=== PATIENT | male | born 1945 | race Caucasian/White ===

== ENCOUNTER 2022-01-24 14:20 | Inpatient (IN) ==
[2022-01-24] MEDS ORDERED: SODIUM CHLORIDE 0.9% 500 ML IV STA (14:54)
[2022-01-24 15:05] LABS: Basophils % 0.3 % (0.0-0.8); Eosinophils # 0.1 10*3/uL (0.0-0.87); Immature Granulocytes % 2.7 %; Immature Granulocytes Absolute 0.28 #; Lymphocytes # 1.2 10*3/uL (1.4-4.0); Lymphocytes % 11.3 % (21.2-54.2); Mean Corpuscular HGB Conc 30.3 GM/DL (32-36); Mean Corpuscular Volume 87.5 FL (87-102); Mean Platelet Volume 10.7 FL (9.6-12.0); Monocytes # 0.7 10*3/uL (0.11-0.8); Monocytes % 6.4 % (1.7-12.7); NRBC # 0.05 10*3/uL; Neutrophils % 78.3 % (38.7-73.9); Platelet Count 203 T/CUMM (130-400); Red Blood Count 3.77 MC/CUMM (3.8-5.5); Red Cell Distribution Width 20.4 % (9.3-17.3); White Blood Count 10.5 T/CUMM (4-12)
[2022-01-24 15:18] LABS: INR 1.3; PT Patient Result 14.4 SECS (10.1-12.1); Partial Thromboplastin Time 24.7 SECS (23.7-32.9)
[2022-01-24 15:22] LABS: Albumin 2.1 G/DL (3.4-5.0); Bilirubin,Total 1.9 MG/DL (0.20-1.00); Calcium 6.5 MG/DL (8.5-10.1); Osmolality,Calculated 292.7 MOS/KG (273-304); Potassium 3.6 MMOL/L (3.5-5.1); Total Protein 5.3 G/DL (6.4-8.2)
[2022-01-24] MEDS ORDERED: ONDANSETRON 4 MG/2 ML VIAL IV PRN (15:51)
[2022-01-24] MEDS ORDERED: ACETAMINOPHEN 325 MG TABLET PO PRN (15:51)
[2022-01-24] MEDS ORDERED: ZALEPLON 5 MG CAPSULE PO PRN (15:51)
[2022-01-24] MEDS ORDERED: MAGNESIUM SULF RIDER 2 GM/50 ML PREMIX IV PRN (15:51)
[2022-01-24] MEDS ORDERED: MAGNESIUM SULF RIDER 4 GM/100 ML PREMIX IV PRN (15:51)
[2022-01-24] MEDS ORDERED: FUROSEMIDE 40 MG/4 ML VIAL IV SCH (16:00)
[2022-01-24] MEDS ORDERED: POTASSIUM CHLORIDE 20 MEQ TABLET PO PRN (16:01)
[2022-01-24] MEDS: PROMETHAZINE 25 MG TABLET PO SCH (17:00)
[2022-01-24] MEDS: ENOXAPARIN 30 MG/0.3 ML SYRINGE SUBCUT SCH (18:36)
[2022-01-24] MEDS: AZITHROMYCIN INJ 500 MG in SODIUM CHLORIDE 0.9% 250 ML IV SCH (19:18)
[2022-01-24] MEDS: LEVALBUTEROL 1.25 MG/3 ML NEB RESP TX SCH ×2 (19:51→23:21)
[2022-01-24] MEDS: cefTRIAXone 1,000 MG in SODIUM CHLORIDE 0.9% 100 ML IV SCH (20:06)
[2022-01-24] MEDS: PANTOPRAZOLE 40 MG TABLET PO SCH (20:52)
[2022-01-24 22:14] LABS: CKMB % 1.02 %; High Sensitive Troponin I* 135.4 ng/L (0-78)
[2022-01-25] MEDS: PROMETHAZINE 25 MG TABLET PO SCH ×6 (00:27→19:27)
[2022-01-25 05:46] LABS: Basophils % 0.2 % (0.0-0.8); Eosinophils # 0.1 10*3/uL (0.0-0.87); Eosinophils % 1.2 % (0.00-10.9); Hematocrit 30.6 VOL% (42.0-52.0); Hemoglobin 9.5 GM/DL (14.0-18.0); Immature Granulocytes Absolute 0.18 #; Lymphocytes # 1.1 10*3/uL (1.4-4.0); Lymphocytes % 12.2 % (21.2-54.2); Mean Corpuscular Volume 86.9 FL (87-102); Mean Platelet Volume 10.5 FL (9.6-12.0); Monocytes # 0.7 10*3/uL (0.11-0.8); Monocytes % 7.3 % (1.7-12.7); NRBC # 0.04 10*3/uL; Neutrophils % 77.1 % (38.7-73.9); Platelet Count 184 T/CUMM (130-400); Red Blood Count 3.52 MC/CUMM (3.8-5.5); Red Cell Distribution Width 20.3 % (9.3-17.3); White Blood Count 8.9 T/CUMM (4-12)
[2022-01-25 06:12] LABS: Albumin 2.1 G/DL (3.4-5.0); Bilirubin,Total 1.3 MG/DL (0.20-1.00); Osmolality,Calculated 293.7 MOS/KG (273-304); Potassium 3.2 MMOL/L (3.5-5.1); Total Protein 5.5 G/DL (6.4-8.2)
[2022-01-25] MEDS: LEVALBUTEROL 1.25 MG/3 ML NEB RESP TX SCH ×3 (07:39→19:30)
[2022-01-25] MEDS ORDERED: FUROSEMIDE 40 MG/4 ML VIAL IV SCH (08:00)
[2022-01-25] MEDS: NEBIVOLOL 10 MG TABLET PO SCH (08:34)
[2022-01-25] MEDS: FERROUS SULFATE 325 MG TABLET PO SCH (08:35)
[2022-01-25] MEDS: PANTOPRAZOLE 40 MG TABLET PO SCH ×2 (08:35→21:37)
[2022-01-25] MEDS: methylPREDNISolone 4 MG TABLET PO SCH (08:35)
[2022-01-25] MEDS: FLUTICASONE/SALMETEROL 500-50 DISKUS 14 DOSE INH SCH ×2 (08:36→21:43)
[2022-01-25] MEDS: CHOLECALCIFEROL 1,000 UNIT TABLET PO SCH (08:45)
[2022-01-25] MEDS ORDERED: PANTOPRAZOLE 40 MG TABLET PO SCH (09:00)
[2022-01-25] MEDS ORDERED: CHOLECALCIFEROL 1,000 UNIT TABLET PO SCH (09:00)
[2022-01-25] MEDS ORDERED: BIMATOPROST 0.01% OPH SOLN 2.5 ML BOTTLE BOTH EYES SCH (09:00)
[2022-01-25] MEDS ORDERED: POTASSIUM CHLORIDE 20 MEQ TABLET PO ONE (09:28)
[2022-01-25 13:55] LABS: Hepatitis B Core IgM Quant < 0.05 Index; Hepatitis B Surface Ag Quant < 0.10 Index; Hepatitis B Surface Ag Result Non-Reactive (NonReactive); Hepatitis C Virus Ab Quant 0.03 Index; Hepatitis C Virus Ab Result Non-Reactive (NonReactive)
[2022-01-25] MEDS: cefTRIAXone 1,000 MG in SODIUM CHLORIDE 0.9% 100 ML IV SCH (17:40)
[2022-01-25] MEDS: ENOXAPARIN 30 MG/0.3 ML SYRINGE SUBCUT SCH (17:44)
[2022-01-25] MEDS: AZITHROMYCIN INJ 500 MG in SODIUM CHLORIDE 0.9% 250 ML IV SCH (17:48)
[2022-01-25] MEDS: BIMATOPROST 0.01% OPH SOLN 2.5 ML BOTTLE BOTH EYES SCH (21:41)
[2022-01-26] MEDS: LEVALBUTEROL 1.25 MG/3 ML NEB RESP TX SCH ×4 (01:58→19:40)
[2022-01-26] MEDS: PROMETHAZINE 25 MG TABLET PO SCH ×2 (04:46→11:03)
[2022-01-26 05:32] LABS: Basophils % 0.1 % (0.0-0.8); Eosinophils % 0.3 % (0.00-10.9); Hematocrit 31.6 VOL% (42.0-52.0); Hemoglobin 9.5 GM/DL (14.0-18.0); Immature Granulocytes % 2.7 %; Immature Granulocytes Absolute 0.23 #; Lymphocytes # 0.8 10*3/uL (1.4-4.0); Lymphocytes % 8.9 % (21.2-54.2); Mean Corpuscular HGB Conc 30.1 GM/DL (32-36); Mean Platelet Volume 10.1 FL (9.6-12.0); Monocytes # 0.5 10*3/uL (0.11-0.8); Monocytes % 6.2 % (1.7-12.7); NRBC # 0.05 10*3/uL; Neutrophils % 81.8 % (38.7-73.9); Platelet Count 184 T/CUMM (130-400); Red Blood Count 3.59 MC/CUMM (3.8-5.5); Red Cell Distribution Width 20.3 % (9.3-17.3); White Blood Count 8.7 T/CUMM (4-12)
[2022-01-26 06:05] LABS: Albumin 2.4 G/DL (3.4-5.0); Calcium 7.1 MG/DL (8.5-10.1); Osmolality,Calculated 292.8 MOS/KG (273-304); Potassium 3.6 MMOL/L (3.5-5.1); Total Protein 6.1 G/DL (6.4-8.2)
[2022-01-26] MEDS: CHOLECALCIFEROL 1,000 UNIT TABLET PO SCH (09:31)
[2022-01-26] MEDS: PANTOPRAZOLE 40 MG TABLET PO SCH ×2 (09:31→20:33)
[2022-01-26] MEDS: FERROUS SULFATE 325 MG TABLET PO SCH (09:31)
[2022-01-26] MEDS: methylPREDNISolone 4 MG TABLET PO SCH (09:32)
[2022-01-26] MEDS: FLUTICASONE/SALMETEROL 500-50 DISKUS 14 DOSE INH SCH ×2 (09:32→20:34)
[2022-01-26 09:36] LABS: Albumin (SPE) 3.2 G/DL (3.2-5.3); Albumin (SPE) Rel % 53.9 %; Alpha 1 (SPE) 0.4 G/DL (0.1-0.4); Alpha 1 (SPE) Rel % 6.9 %; Beta (SPE) 0.6 G/DL (0.5-1.1); Beta (SPE) Rel % 9.2 %
[2022-01-26 09:41] LABS: Gamma (SPE) 0.8 G/DL (0.7-1.7)
[2022-01-26] MEDS ORDERED: GLUCAGON 1 MG VIAL IM PRN (10:33)
[2022-01-26] MEDS ORDERED: DEXTROSE 10% 250 ML BAG IV PRN (10:33)
[2022-01-26] MEDS: INSULIN LISPRO 100 UNIT/ML SUBCUT SCH ×3 (13:10→20:33)
[2022-01-26] MEDS: cefTRIAXone 1,000 MG in SODIUM CHLORIDE 0.9% 100 ML IV SCH (16:04)
[2022-01-26] MEDS: AZITHROMYCIN INJ 500 MG in SODIUM CHLORIDE 0.9% 250 ML IV SCH (16:42)
[2022-01-26 17:13] LABS: Total Protein 24 Hr Ur Result 276 MG/24HR (0-149.1); Total Volume,Urine 1150 ML (400-2000)
[2022-01-26] MEDS: PROMETHAZINE 25 MG TABLET PO PRN (17:25)
[2022-01-26] MEDS: ENOXAPARIN 30 MG/0.3 ML SYRINGE SUBCUT SCH (17:26)
[2022-01-26 20:07] LABS: Protein/Creatinine Ratio,Urine 0.4 RATIO
[2022-01-26] MEDS: BIMATOPROST 0.01% OPH SOLN 2.5 ML BOTTLE BOTH EYES SCH (20:34)
[2022-01-27] MEDS: LEVALBUTEROL 1.25 MG/3 ML NEB RESP TX SCH ×4 (00:50→19:23)
[2022-01-27 05:02] LABS: Basophils % 0.2 % (0.0-0.8); Eosinophils % 0.2 % (0.00-10.9); Hematocrit 30.9 VOL% (42.0-52.0); Hemoglobin 9.5 GM/DL (14.0-18.0); Immature Granulocytes % 5.4 %; Lymphocytes # 0.9 10*3/uL (1.4-4.0); Lymphocytes % 10.1 % (21.2-54.2); Mean Corpuscular HGB Conc 30.7 GM/DL (32-36); Mean Corpuscular Volume 88.5 FL (87-102); Mean Platelet Volume 10.1 FL (9.6-12.0); Monocytes # 0.6 10*3/uL (0.11-0.8); Monocytes % 6.5 % (1.7-12.7); NRBC # 0.07 10*3/uL; Neutrophils % 77.6 % (38.7-73.9); Platelet Count 184 T/CUMM (130-400); Red Blood Count 3.49 MC/CUMM (3.8-5.5); Red Cell Distribution Width 20.5 % (9.3-17.3); White Blood Count 9.2 T/CUMM (4-12)
[2022-01-27] MEDS: PROMETHAZINE 25 MG TABLET PO PRN (05:04)
[2022-01-27 05:19] LABS: Calcium 7.2 MG/DL (8.5-10.1); Osmolality,Calculated 293.7 MOS/KG (273-304); Potassium 4.1 MMOL/L (3.5-5.1)
[2022-01-27 05:29] LABS: Lymphocytes 12 % (20-55); Microcytosis 1+; Polychromasia Slight; Total Cells Counted 100
[2022-01-27 05:30] LABS: Acanthocytes Few; Ovalocytes Few; Platelet Estimate Adequate
[2022-01-27 07:40] LABS: 24 Hr Protein (Bench) 276 MG/24HR (0-149.1)
[2022-01-27] MEDS ORDERED: MAGNESIUM SULF RIDER 2 GM/50 ML PREMIX IV ONE (08:08)
[2022-01-27] MEDS: INSULIN LISPRO 100 UNIT/ML SUBCUT SCH ×4 (10:00→22:11)
[2022-01-27] MEDS: MONTELUKAST 10 MG TABLET PO SCH (10:04)
[2022-01-27] MEDS: methylPREDNISolone 4 MG TABLET PO SCH (10:04)
[2022-01-27] MEDS: FLUTICASONE/SALMETEROL 500-50 DISKUS 14 DOSE INH SCH ×2 (10:05→22:12)
[2022-01-27] MEDS: FERROUS SULFATE 325 MG TABLET PO SCH (10:05)
[2022-01-27] MEDS: PANTOPRAZOLE 40 MG TABLET PO SCH ×2 (10:05→22:10)
[2022-01-27] MEDS: CHOLECALCIFEROL 1,000 UNIT TABLET PO SCH (10:05)
[2022-01-27] MEDS: cefTRIAXone 1,000 MG in SODIUM CHLORIDE 0.9% 100 ML IV SCH (17:17)
[2022-01-27] MEDS: ENOXAPARIN 30 MG/0.3 ML SYRINGE SUBCUT SCH (17:18)
[2022-01-27] MEDS: SODIUM CHLORIDE 0.9% 1,000 ML IV SCH (17:21)
[2022-01-27] MEDS: AZITHROMYCIN INJ 500 MG in SODIUM CHLORIDE 0.9% 250 ML IV SCH (18:48)
[2022-01-27] MEDS: BIMATOPROST 0.01% OPH SOLN 2.5 ML BOTTLE BOTH EYES SCH (21:37)
[2022-01-28] MEDS: LEVALBUTEROL 1.25 MG/3 ML NEB RESP TX SCH ×4 (00:37→19:10)
[2022-01-28 04:57] LABS: Basophils % 0.2 % (0.0-0.8); Eosinophils % 0.3 % (0.00-10.9); Hematocrit 32.8 VOL% (42.0-52.0); Immature Granulocytes % 6.3 %; Immature Granulocytes Absolute 0.57 #; Lymphocytes # 1.1 10*3/uL (1.4-4.0); Lymphocytes % 11.6 % (21.2-54.2); Mean Corpuscular HGB Conc 30.5 GM/DL (32-36); Mean Corpuscular Volume 88.4 FL (87-102); Monocytes # 0.6 10*3/uL (0.11-0.8); NRBC # 0.14 10*3/uL; Neutrophils % 74.6 % (38.7-73.9); Platelet Count 192 T/CUMM (130-400); Red Blood Count 3.71 MC/CUMM (3.8-5.5); Red Cell Distribution Width 21.1 % (9.3-17.3)
[2022-01-28 05:23] LABS: Anisocytosis 2+; Band Neutrophils 1 % (0-10); Lymphocytes 12 % (20-55); Nucleated Red Blood Cells 3 /100 WBC (0-5); Ovalocytes Few; Platelet Estimate Normal; Poikilocytosis 1+; Total Cells Counted 100
[2022-01-28 05:24] LABS: Burr Cells 1+
[2022-01-28 05:27] LABS: Calcium 7.7 MG/DL (8.5-10.1); Osmolality,Calculated 296.4 MOS/KG (273-304); Potassium 4.5 MMOL/L (3.5-5.1)
[2022-01-28] MEDS: INSULIN LISPRO 100 UNIT/ML SUBCUT SCH ×4 (10:09→22:12)
[2022-01-28] MEDS: methylPREDNISolone 4 MG TABLET PO SCH (10:17)
[2022-01-28] MEDS: CHOLECALCIFEROL 1,000 UNIT TABLET PO SCH (10:18)
[2022-01-28] MEDS: FERROUS SULFATE 325 MG TABLET PO SCH (10:18)
[2022-01-28] MEDS: MONTELUKAST 10 MG TABLET PO SCH (10:18)
[2022-01-28] MEDS: FLUTICASONE/SALMETEROL 500-50 DISKUS 14 DOSE INH SCH ×2 (10:18→21:55)
[2022-01-28] MEDS: PANTOPRAZOLE 40 MG TABLET PO SCH ×2 (10:18→21:55)
[2022-01-28] MEDS: SODIUM CHLORIDE 0.9% 1,000 ML IV SCH ×2 (13:42→19:19)
[2022-01-28] MEDS: cefTRIAXone 1,000 MG in SODIUM CHLORIDE 0.9% 100 ML IV SCH (17:32)
[2022-01-28] MEDS: ENOXAPARIN 30 MG/0.3 ML SYRINGE SUBCUT SCH (17:33)
[2022-01-28] MEDS: AZITHROMYCIN INJ 500 MG in SODIUM CHLORIDE 0.9% 250 ML IV SCH (18:38)
[2022-01-28] MEDS: BIMATOPROST 0.01% OPH SOLN 2.5 ML BOTTLE BOTH EYES SCH (22:12)
[2022-01-29] MEDS: LEVALBUTEROL 1.25 MG/3 ML NEB RESP TX SCH ×4 (00:06→19:30)
[2022-01-29 06:08] LABS: Basophils % 0.1 % (0.0-0.8); Eosinophils % 0.4 % (0.00-10.9); Hematocrit 34.5 VOL% (42.0-52.0); Hemoglobin 10.2 GM/DL (14.0-18.0); Immature Granulocytes % 5.6 %; Immature Granulocytes Absolute 0.55 #; Lymphocytes % 10.3 % (21.2-54.2); Mean Corpuscular HGB Conc 29.6 GM/DL (32-36); Mean Corpuscular Volume 90.1 FL (87-102); Mean Platelet Volume 10.3 FL (9.6-12.0); Monocytes # 0.6 10*3/uL (0.11-0.8); Monocytes % 6.4 % (1.7-12.7); NRBC # 0.22 10*3/uL; Neutrophils % 77.2 % (38.7-73.9); Platelet Count 215 T/CUMM (130-400); Red Blood Count 3.83 MC/CUMM (3.8-5.5); Red Cell Distribution Width 21.2 % (9.3-17.3); White Blood Count 9.9 T/CUMM (4-12)
[2022-01-29 06:35] LABS: Calcium 8.1 MG/DL (8.5-10.1); Osmolality,Calculated 290.5 MOS/KG (273-304); Potassium 4.7 MMOL/L (3.5-5.1)
[2022-01-29 06:57] LABS: Anisocytosis 1+; Band Neutrophils 6 % (0-10); Burr Cells 1+; Lymphocytes 11 % (20-55); Metamyelocytes 4 %; Nucleated Red Blood Cells 3 /100 WBC (0-5); Ovalocytes Few; Platelet Estimate Normal; Total Cells Counted 100
[2022-01-29] MEDS: INSULIN LISPRO 100 UNIT/ML SUBCUT SCH ×4 (08:05→21:13)
[2022-01-29] MEDS: PANTOPRAZOLE 40 MG TABLET PO SCH ×2 (08:09→21:12)
[2022-01-29] MEDS: MONTELUKAST 10 MG TABLET PO SCH (08:09)
[2022-01-29] MEDS: CHOLECALCIFEROL 1,000 UNIT TABLET PO SCH (08:09)
[2022-01-29] MEDS: ASPIRIN EC 81 MG TABLET PO SCH (08:09)
[2022-01-29] MEDS: NEBIVOLOL 10 MG TABLET PO SCH (08:09)
[2022-01-29] MEDS: methylPREDNISolone 4 MG TABLET PO SCH (08:09)
[2022-01-29] MEDS: SODIUM CHLORIDE 0.9% 1,000 ML IV SCH (08:10)
[2022-01-29] MEDS: FERROUS SULFATE 325 MG TABLET PO SCH (08:10)
[2022-01-29] MEDS: FLUTICASONE/SALMETEROL 500-50 DISKUS 14 DOSE INH SCH ×2 (08:11→21:12)
[2022-01-29] MEDS: cefTRIAXone 1,000 MG in SODIUM CHLORIDE 0.9% 100 ML IV SCH (16:26)
[2022-01-29] MEDS: ENOXAPARIN 30 MG/0.3 ML SYRINGE SUBCUT SCH (16:27)
[2022-01-29] MEDS: AZITHROMYCIN INJ 500 MG in SODIUM CHLORIDE 0.9% 250 ML IV SCH (18:01)
[2022-01-29] MEDS: BIMATOPROST 0.01% OPH SOLN 2.5 ML BOTTLE BOTH EYES SCH (21:22)
[2022-01-30] MEDS: LEVALBUTEROL 1.25 MG/3 ML NEB RESP TX SCH ×4 (00:25→18:48)
[2022-01-30 04:58] LABS: Basophils % 0.2 % (0.0-0.8); Eosinophils # 0.1 10*3/uL (0.0-0.87); Eosinophils % 0.7 % (0.00-10.9); Hematocrit 34.7 VOL% (42.0-52.0); Hemoglobin 10.3 GM/DL (14.0-18.0); Immature Granulocytes % 5.7 %; Immature Granulocytes Absolute 0.51 #; Lymphocytes # 1.2 10*3/uL (1.4-4.0); Lymphocytes % 13.1 % (21.2-54.2); Mean Corpuscular HGB Conc 29.7 GM/DL (32-36); Mean Corpuscular Volume 90.6 FL (87-102); Mean Platelet Volume 10.3 FL (9.6-12.0); Monocytes # 0.6 10*3/uL (0.11-0.8); Monocytes % 6.9 % (1.7-12.7); Neutrophils % 73.4 % (38.7-73.9); Platelet Count 215 T/CUMM (130-400); Red Blood Count 3.83 MC/CUMM (3.8-5.5); Red Cell Distribution Width 21.3 % (9.3-17.3)
[2022-01-30 05:31] LABS: Lymphocytes 15 % (20-55); Nucleated Red Blood Cells 2 /100 WBC (0-5); Total Cells Counted 100
[2022-01-30 05:32] LABS: Elliptocytes Few; Platelet Estimate Normal
[2022-01-30 05:34] LABS: Calcium 8.1 MG/DL (8.5-10.1); Osmolality,Calculated 294.3 MOS/KG (273-304)
[2022-01-30 05:38] LABS: Albumin 2.6 G/DL (3.4-5.0); Bilirubin,Direct 0.53 MG/DL (0.0-0.20); Bilirubin,Indirect 0.3 MG/DL (0.0-1.0); Bilirubin,Total 0.8 MG/DL (0.20-1.00); Total Protein 6.1 G/DL (6.4-8.2)
[2022-01-30] MEDS: SODIUM CHLORIDE 0.9% 1,000 ML IV SCH ×2 (06:17→15:46)
[2022-01-30] MEDS ORDERED: cefTRIAXone 1,000 MG in SODIUM CHLORIDE 0.9% 100 ML IV ONE (08:03)
[2022-01-30] MEDS: FLUTICASONE/SALMETEROL 500-50 DISKUS 14 DOSE INH SCH ×2 (08:52→21:25)
[2022-01-30] MEDS: CHOLECALCIFEROL 1,000 UNIT TABLET PO SCH (08:55)
[2022-01-30] MEDS: ASPIRIN EC 81 MG TABLET PO SCH (08:55)
[2022-01-30] MEDS: FERROUS SULFATE 325 MG TABLET PO SCH (08:55)
[2022-01-30] MEDS: MONTELUKAST 10 MG TABLET PO SCH (08:55)
[2022-01-30] MEDS: PANTOPRAZOLE 40 MG TABLET PO SCH ×2 (08:56→21:26)
[2022-01-30] MEDS: NEBIVOLOL 10 MG TABLET PO SCH (08:56)
[2022-01-30] MEDS: methylPREDNISolone 4 MG TABLET PO SCH (08:56)
[2022-01-30] MEDS: INSULIN LISPRO 100 UNIT/ML SUBCUT SCH ×4 (08:57→20:15)
[2022-01-30] MEDS: cefTRIAXone 1,000 MG in SODIUM CHLORIDE 0.9% 100 ML IV SCH (15:46)
[2022-01-30] MEDS: AZITHROMYCIN INJ 500 MG in SODIUM CHLORIDE 0.9% 250 ML IV SCH (17:03)
[2022-01-30] MEDS: ENOXAPARIN 30 MG/0.3 ML SYRINGE SUBCUT SCH (17:05)
[2022-01-30] MEDS: BIMATOPROST 0.01% OPH SOLN 2.5 ML BOTTLE BOTH EYES SCH (21:28)
[2022-01-31] MEDS: LEVALBUTEROL 1.25 MG/3 ML NEB RESP TX SCH ×4 (00:06→19:09)
[2022-01-31] MEDS: SODIUM CHLORIDE 0.9% 1,000 ML IV SCH ×2 (00:32→20:52)
[2022-01-31 04:36] LABS: Basophils % 0.3 % (0.0-0.8); Eosinophils % 0.4 % (0.00-10.9); Hematocrit 35.7 VOL% (42.0-52.0); Hemoglobin 10.6 GM/DL (14.0-18.0); Immature Granulocytes % 5.5 %; Immature Granulocytes Absolute 0.57 #; Lymphocytes # 1.4 10*3/uL (1.4-4.0); Lymphocytes % 13.2 % (21.2-54.2); Mean Corpuscular HGB Conc 29.7 GM/DL (32-36); Mean Corpuscular Volume 90.2 FL (87-102); Mean Platelet Volume 9.7 FL (9.6-12.0); Monocytes # 0.7 10*3/uL (0.11-0.8); Monocytes % 6.4 % (1.7-12.7); NRBC # 0.31 10*3/uL; Neutrophils % 74.2 % (38.7-73.9); Platelet Count 214 T/CUMM (130-400); Red Blood Count 3.96 MC/CUMM (3.8-5.5); Red Cell Distribution Width 21.4 % (9.3-17.3); White Blood Count 10.3 T/CUMM (4-12)
[2022-01-31 04:54] LABS: Calcium 7.9 MG/DL (8.5-10.1); Calcium 8.1 MG/DL (8.5-10.1); Osmolality,Calculated 286.8 MOS/KG (273-304); Osmolality,Calculated 294.3 MOS/KG (273-304); Potassium 5.4 MMOL/L (3.5-5.1)
[2022-01-31 05:23] LABS: Lymphocytes 14 % (20-55); Metamyelocytes 1 %; Nucleated Red Blood Cells 4 /100 WBC (0-5); Total Cells Counted 100
[2022-01-31 05:24] LABS: Microcytosis 1+; Ovalocytes Few
[2022-01-31 05:25] LABS: Acanthocytes Few; Platelet Estimate Normal; Polychromasia Slight; Target Cells Slight
[2022-01-31] MEDS ORDERED: cefTRIAXone 1,000 MG in SODIUM CHLORIDE 0.9% 100 ML IV ONE (06:00)
[2022-01-31] MEDS: INSULIN LISPRO 100 UNIT/ML SUBCUT SCH ×4 (08:01→20:57)
[2022-01-31] MEDS ORDERED: hydrALAZINE 25 MG TABLET PO SCH (09:48)
[2022-01-31] MEDS ORDERED: KETAMINE 500 MG/10 ML VIAL ONE (09:53)
[2022-01-31] MEDS ORDERED: ETOMIDATE 40 MG/20 ML VIAL IV ONE (09:53)
[2022-01-31] MEDS ORDERED: LIDOCAINE 2% 5 ML VIAL ONE (09:53)
[2022-01-31] MEDS ORDERED: fentaNYL 100 MCG/2 ML VIAL ONE (09:53)
[2022-01-31] MEDS ORDERED: SEVOFLURANE 1 UNIT/15 MINUTE INH ONE ×2 (09:53→11:27)
[2022-01-31] MEDS ORDERED: SUCCINYLCHOLINE 200 MG/10 ML VIAL ONE (09:53)
[2022-01-31] MEDS ORDERED: MIDAZOLAM 2 MG/2 ML VIAL ONE (09:56)
[2022-01-31] MEDS ORDERED: MIDAZOLAM 2 MG/2 ML VIAL IV ONE (10:07)
[2022-01-31] MEDS ORDERED: DEXAMETHASONE 4 MG/1 ML VIAL ONE (10:43)
[2022-01-31] MEDS ORDERED: SODIUM CHLORIDE 0.9% 1,000 ML IV ONE (10:43)
[2022-01-31] MEDS ORDERED: ONDANSETRON 4 MG/2 ML VIAL ONE (10:43)
[2022-01-31] MEDS ORDERED: NEOMYCIN/POLYMYXIN IRRIG SOLN 1 ML AMP BLADDERIRR ONE (10:46)
[2022-01-31] MEDS ORDERED: ePHEDrine 50 MG/ML VIAL ONE (10:48)
[2022-01-31] MEDS ORDERED: amLODIPine 5 MG TABLET PO SCH (11:00)
[2022-01-31] MEDS ORDERED: GLYCOPYRROLATE 0.4 MG/2 ML VIAL ONE (11:09)
[2022-01-31] MEDS ORDERED: NEOSTIGMINE 10 MG/10 ML VIAL ONE (11:09)
[2022-01-31 13:38] LABS: Osmolality,Calculated 290.4 MOS/KG (273-304); Potassium 5.2 MMOL/L (3.5-5.1)
[2022-01-31] MEDS: MONTELUKAST 10 MG TABLET PO SCH (14:39)
[2022-01-31] MEDS: NEBIVOLOL 10 MG TABLET PO SCH (14:39)
[2022-01-31] MEDS: methylPREDNISolone 4 MG TABLET PO SCH (14:39)
[2022-01-31] MEDS: FERROUS SULFATE 325 MG TABLET PO SCH (14:39)
[2022-01-31] MEDS: ASPIRIN EC 81 MG TABLET PO SCH (14:40)
[2022-01-31] MEDS: PANTOPRAZOLE 40 MG TABLET PO SCH ×2 (14:40→22:07)
[2022-01-31] MEDS: CHOLECALCIFEROL 1,000 UNIT TABLET PO SCH (14:40)
[2022-01-31] MEDS: FLUTICASONE/SALMETEROL 500-50 DISKUS 14 DOSE INH SCH ×2 (14:42→22:04)
[2022-01-31] MEDS: cefTRIAXone 1,000 MG in SODIUM CHLORIDE 0.9% 100 ML IV SCH (15:42)
[2022-01-31] MEDS: BIMATOPROST 0.01% OPH SOLN 2.5 ML BOTTLE BOTH EYES SCH (22:08)
[2022-02-01] MEDS: LEVALBUTEROL 1.25 MG/3 ML NEB RESP TX SCH ×4 (00:33→19:53)
[2022-02-01 05:16] LABS: Potassium 4.3 MMOL/L (3.5-5.1)
[2022-02-01 05:19] LABS: Basophils % 0.1 % (0.0-0.8); Eosinophils % 0.1 % (0.00-10.9); Hemoglobin 9.4 GM/DL (14.0-18.0); Immature Granulocytes % 5.7 %; Immature Granulocytes Absolute 0.53 #; Lymphocytes # 0.5 10*3/uL (1.4-4.0); Lymphocytes % 5.4 % (21.2-54.2); Mean Corpuscular HGB Conc 28.8 GM/DL (32-36); Mean Corpuscular Volume 92.4 FL (87-102); Monocytes # 0.5 10*3/uL (0.11-0.8); NRBC # 0.18 10*3/uL; Neutrophils % 83.7 % (38.7-73.9); Platelet Count 180 T/CUMM (130-400); Red Blood Count 3.53 MC/CUMM (3.8-5.5); Red Cell Distribution Width 21.3 % (9.3-17.3); White Blood Count 9.4 T/CUMM (4-12)
[2022-02-01 05:26] LABS: Hematocrit 32.6 VOL% (42.0-52.0)
[2022-02-01 05:33] LABS: Acanthocytes Few; Lymphocytes 3 % (20-55); Nucleated Red Blood Cells 2 /100 WBC (0-5); Polychromasia Slight; Total Cells Counted 100
[2022-02-01 05:34] LABS: Microcytosis 1+; Ovalocytes Slight; Target Cells Slight
[2022-02-01 05:35] LABS: Hypochromia Slight; Platelet Estimate Adequate
[2022-02-01] MEDS: INSULIN LISPRO 100 UNIT/ML SUBCUT SCH ×4 (08:41→22:03)
[2022-02-01] MEDS: PANTOPRAZOLE 40 MG TABLET PO SCH ×2 (08:46→22:02)
[2022-02-01] MEDS: FERROUS SULFATE 325 MG TABLET PO SCH (08:46)
[2022-02-01] MEDS: MONTELUKAST 10 MG TABLET PO SCH (08:46)
[2022-02-01] MEDS: methylPREDNISolone 4 MG TABLET PO SCH (08:46)
[2022-02-01] MEDS: NEBIVOLOL 10 MG TABLET PO SCH (08:47)
[2022-02-01] MEDS: ASPIRIN EC 81 MG TABLET PO SCH (08:47)
[2022-02-01] MEDS: ISOSORBIDE DINITRATE 10 MG TABLET PO SCH ×3 (08:47→22:05)
[2022-02-01] MEDS: hydrALAZINE 25 MG TABLET PO SCH ×3 (08:47→22:02)
[2022-02-01] MEDS: CHOLECALCIFEROL 1,000 UNIT TABLET PO SCH (08:47)
[2022-02-01] MEDS: amLODIPine 5 MG TABLET PO SCH (08:51)
[2022-02-01] MEDS: FLUTICASONE/SALMETEROL 500-50 DISKUS 14 DOSE INH SCH ×2 (08:51→22:03)
[2022-02-01] MEDS ORDERED: amLODIPine 10 MG TABLET PO SCH (09:00)
[2022-02-01] MEDS: BIMATOPROST 0.01% OPH SOLN 2.5 ML BOTTLE BOTH EYES SCH (22:03)
[2022-02-02] MEDS: LEVALBUTEROL 1.25 MG/3 ML NEB RESP TX SCH ×4 (00:05→18:55)
[2022-02-02 05:41] LABS: Osmolality,Calculated 287.5 MOS/KG (273-304); Potassium 5.4 MMOL/L (3.5-5.1)
[2022-02-02 06:04] LABS: Basophils % 0.2 % (0.0-0.8); Eosinophils % 0.1 % (0.00-10.9); Hemoglobin 10.3 GM/DL (14.0-18.0); Immature Granulocytes % 4.6 %; Immature Granulocytes Absolute 0.51 #; Lymphocytes # 0.8 10*3/uL (1.4-4.0); Lymphocytes % 6.8 % (21.2-54.2); Mean Corpuscular HGB Conc 29.1 GM/DL (32-36); Mean Corpuscular Volume 91.7 FL (87-102); Mean Platelet Volume 9.9 FL (9.6-12.0); Monocytes # 0.7 10*3/uL (0.11-0.8); Monocytes % 6.2 % (1.7-12.7); NRBC # 0.19 10*3/uL; Neutrophils % 82.1 % (38.7-73.9); Platelet Count 199 T/CUMM (130-400); Red Blood Count 3.86 MC/CUMM (3.8-5.5); Red Cell Distribution Width 21.9 % (9.3-17.3)
[2022-02-02 06:05] LABS: Hematocrit 35.4 VOL% (42.0-52.0)
[2022-02-02 06:28] LABS: Hypochromia 1+; Lymphocytes 5 % (20-55); Metamyelocytes 1 %; Microcytosis 1+; Nucleated Red Blood Cells 2 /100 WBC (0-5); Total Cells Counted 100
[2022-02-02 06:29] LABS: Acanthocytes Few; Anisocytosis 1+; Ovalocytes Few; Polychromasia Slight
[2022-02-02 06:30] LABS: Platelet Estimate Adequate
[2022-02-02] MEDS: INSULIN LISPRO 100 UNIT/ML SUBCUT SCH ×4 (07:24→21:13)
[2022-02-02] MEDS: methylPREDNISolone 4 MG TABLET PO SCH (09:26)
[2022-02-02] MEDS: amLODIPine 5 MG TABLET PO SCH (09:26)
[2022-02-02] MEDS: ASPIRIN EC 81 MG TABLET PO SCH (09:26)
[2022-02-02] MEDS: NEBIVOLOL 10 MG TABLET PO SCH (09:26)
[2022-02-02] MEDS: CHOLECALCIFEROL 1,000 UNIT TABLET PO SCH (09:27)
[2022-02-02] MEDS: PANTOPRAZOLE 40 MG TABLET PO SCH ×2 (09:28→21:12)
[2022-02-02] MEDS: FERROUS SULFATE 325 MG TABLET PO SCH (09:28)
[2022-02-02] MEDS: ISOSORBIDE DINITRATE 10 MG TABLET PO SCH (09:28)
[2022-02-02] MEDS: hydrALAZINE 25 MG TABLET PO SCH (09:28)
[2022-02-02] MEDS: MONTELUKAST 10 MG TABLET PO SCH (09:28)
[2022-02-02] MEDS: FLUTICASONE/SALMETEROL 500-50 DISKUS 14 DOSE INH SCH ×2 (09:31→21:13)
[2022-02-02] MEDS: SODIUM ZIRCONIUM CYCLOSILICATE 10 GM PACK PO SCH (17:14)
[2022-02-02] MEDS: ISOSORBIDE DINITRATE 20 MG TABLET PO SCH ×2 (17:16→21:12)
[2022-02-02] MEDS: ENOXAPARIN 30 MG/0.3 ML SYRINGE SUBCUT SCH (18:13)
[2022-02-02] MEDS: BIMATOPROST 0.01% OPH SOLN 2.5 ML BOTTLE BOTH EYES SCH (21:39)
[2022-02-03] MEDS: LEVALBUTEROL 1.25 MG/3 ML NEB RESP TX SCH ×4 (00:02→19:14)
[2022-02-03 06:21] LABS: Calcium 8.3 MG/DL (8.5-10.1); Osmolality,Calculated 287.4 MOS/KG (273-304); Potassium 5.6 MMOL/L (3.5-5.1)
[2022-02-03 06:35] LABS: Basophils % 0.2 % (0.0-0.8); Eosinophils % 0.3 % (0.00-10.9); Hematocrit 36.1 VOL% (42.0-52.0); Hemoglobin 10.7 GM/DL (14.0-18.0); Immature Granulocytes % 4.7 %; Immature Granulocytes Absolute 0.56 #; Lymphocytes # 1.2 10*3/uL (1.4-4.0); Lymphocytes % 10.1 % (21.2-54.2); Mean Corpuscular HGB Conc 29.6 GM/DL (32-36); Mean Corpuscular Volume 90.9 FL (87-102); Mean Platelet Volume 9.8 FL (9.6-12.0); Monocytes # 0.7 10*3/uL (0.11-0.8); NRBC # 0.12 10*3/uL; Neutrophils % 78.7 % (38.7-73.9); Platelet Count 203 T/CUMM (130-400); Red Blood Count 3.97 MC/CUMM (3.8-5.5); Red Cell Distribution Width 22.2 % (9.3-17.3)
[2022-02-03 06:38] LABS: Anisocytosis 1+; Band Neutrophils 4 % (0-10); Burr Cells 1+; Lymphocytes 9 % (20-55); Macrocytosis 1+; Ovalocytes Few; Platelet Estimate Normal; Tear Drop Cells Few; Total Cells Counted 100
[2022-02-03] MEDS: INSULIN LISPRO 100 UNIT/ML SUBCUT SCH ×4 (07:24→21:20)
[2022-02-03] MEDS: ASPIRIN EC 81 MG TABLET PO SCH (09:44)
[2022-02-03] MEDS: ISOSORBIDE DINITRATE 20 MG TABLET PO SCH ×3 (09:45→21:29)
[2022-02-03] MEDS: NEBIVOLOL 10 MG TABLET PO SCH (09:45)
[2022-02-03] MEDS: FERROUS SULFATE 325 MG TABLET PO SCH (09:45)
[2022-02-03] MEDS: amLODIPine 5 MG TABLET PO SCH (09:45)
[2022-02-03] MEDS: MONTELUKAST 10 MG TABLET PO SCH (09:45)
[2022-02-03] MEDS: SODIUM ZIRCONIUM CYCLOSILICATE 10 GM PACK PO SCH (09:45)
[2022-02-03] MEDS: CHOLECALCIFEROL 1,000 UNIT TABLET PO SCH (09:45)
[2022-02-03] MEDS: PANTOPRAZOLE 40 MG TABLET PO SCH ×2 (09:45→21:29)
[2022-02-03] MEDS: FLUTICASONE/SALMETEROL 500-50 DISKUS 14 DOSE INH SCH ×2 (09:46→21:29)
[2022-02-03] MEDS: FUROSEMIDE 40 MG TABLET PO SCH (16:02)
[2022-02-03] MEDS: ENOXAPARIN 30 MG/0.3 ML SYRINGE SUBCUT SCH (16:02)
[2022-02-03] MEDS: BIMATOPROST 0.01% OPH SOLN 2.5 ML BOTTLE BOTH EYES SCH (21:30)
[2022-02-04] MEDS: LEVALBUTEROL 1.25 MG/3 ML NEB RESP TX SCH ×4 (00:05→19:18)
[2022-02-04 05:38] LABS: Basophils % 0.2 % (0.0-0.8); Eosinophils # 0.1 10*3/uL (0.0-0.87); Eosinophils % 0.8 % (0.00-10.9); Hematocrit 35.8 VOL% (42.0-52.0); Immature Granulocytes % 4.8 %; Immature Granulocytes Absolute 0.57 #; Lymphocytes # 0.9 10*3/uL (1.4-4.0); Mean Corpuscular HGB Conc 29.9 GM/DL (32-36); Mean Corpuscular Volume 89.7 FL (87-102); Mean Platelet Volume 10.1 FL (9.6-12.0); Monocytes # 0.6 10*3/uL (0.11-0.8); NRBC # 0.05 10*3/uL; Neutrophils % 81.2 % (38.7-73.9); Platelet Count 205 T/CUMM (130-400); Red Blood Count 3.99 MC/CUMM (3.8-5.5); Red Cell Distribution Width 22.5 % (9.3-17.3); White Blood Count 11.8 T/CUMM (4-12)
[2022-02-04 05:43] LABS: Hemoglobin 10.7 GM/DL (14.0-18.0)
[2022-02-04 05:51] LABS: Calcium 8.3 MG/DL (8.5-10.1); Osmolality,Calculated 289.3 MOS/KG (273-304); Potassium 4.3 MMOL/L (3.5-5.1)
[2022-02-04 05:54] LABS: Eosinophils 1 % (0-10); Lymphocytes 2 % (20-55); Nucleated Red Blood Cells 1 /100 WBC (0-5); Platelet Estimate Normal; Total Cells Counted 100
[2022-02-04] MEDS: ASPIRIN EC 81 MG TABLET PO SCH (09:10)
[2022-02-04] MEDS: MONTELUKAST 10 MG TABLET PO SCH (09:10)
[2022-02-04] MEDS: ISOSORBIDE DINITRATE 20 MG TABLET PO SCH ×3 (09:10→21:38)
[2022-02-04] MEDS: CHOLECALCIFEROL 1,000 UNIT TABLET PO SCH (09:10)
[2022-02-04] MEDS: PANTOPRAZOLE 40 MG TABLET PO SCH ×2 (09:10→21:38)
[2022-02-04] MEDS: NEBIVOLOL 10 MG TABLET PO SCH (09:11)
[2022-02-04] MEDS: FUROSEMIDE 40 MG TABLET PO SCH (09:11)
[2022-02-04] MEDS: amLODIPine 5 MG TABLET PO SCH (09:11)
[2022-02-04] MEDS: SODIUM ZIRCONIUM CYCLOSILICATE 10 GM PACK PO SCH (09:11)
[2022-02-04] MEDS: FERROUS SULFATE 325 MG TABLET PO SCH (09:11)
[2022-02-04] MEDS: INSULIN LISPRO 100 UNIT/ML SUBCUT SCH ×4 (09:12→21:39)
[2022-02-04] MEDS: FLUTICASONE/SALMETEROL 500-50 DISKUS 14 DOSE INH SCH ×2 (09:13→21:38)
[2022-02-04] MEDS: OXYBUTYNIN XL 15 MG TABLET PO SCH (14:26)
[2022-02-04] MEDS: ENOXAPARIN 30 MG/0.3 ML SYRINGE SUBCUT SCH (17:19)
[2022-02-04] MEDS: BIMATOPROST 0.01% OPH SOLN 2.5 ML BOTTLE BOTH EYES SCH (21:42)
[2022-02-05] MEDS: LEVALBUTEROL 1.25 MG/3 ML NEB RESP TX SCH ×4 (00:20→20:24)
[2022-02-05 05:58] LABS: Basophils % 0.2 % (0.0-0.8); Eosinophils # 0.1 10*3/uL (0.0-0.87); Eosinophils % 0.8 % (0.00-10.9); Hemoglobin 10.5 GM/DL (14.0-18.0); Immature Granulocytes Absolute 0.35 #; Lymphocytes # 0.9 10*3/uL (1.4-4.0); Lymphocytes % 7.6 % (21.2-54.2); Mean Corpuscular Volume 90.2 FL (87-102); Mean Platelet Volume 9.5 FL (9.6-12.0); Monocytes # 0.6 10*3/uL (0.11-0.8); Monocytes % 5.4 % (1.7-12.7); NRBC # 0.02 10*3/uL; Platelet Count 181 T/CUMM (130-400); Red Blood Count 3.88 MC/CUMM (3.8-5.5); Red Cell Distribution Width 22.6 % (9.3-17.3); White Blood Count 11.7 T/CUMM (4-12)
[2022-02-05 06:40] LABS: Calcium 8.2 MG/DL (8.5-10.1); Osmolality,Calculated 285.5 MOS/KG (273-304)
[2022-02-05] MEDS: INSULIN LISPRO 100 UNIT/ML SUBCUT SCH ×4 (08:06→21:17)
[2022-02-05] MEDS: SODIUM ZIRCONIUM CYCLOSILICATE 10 GM PACK PO SCH (09:06)
[2022-02-05] MEDS: MONTELUKAST 10 MG TABLET PO SCH (09:10)
[2022-02-05] MEDS: ASPIRIN EC 81 MG TABLET PO SCH (09:10)
[2022-02-05] MEDS: CHOLECALCIFEROL 1,000 UNIT TABLET PO SCH (09:10)
[2022-02-05] MEDS: FERROUS SULFATE 325 MG TABLET PO SCH (09:10)
[2022-02-05] MEDS: NEBIVOLOL 10 MG TABLET PO SCH (09:10)
[2022-02-05] MEDS: PANTOPRAZOLE 40 MG TABLET PO SCH ×2 (09:10→21:15)
[2022-02-05] MEDS: FUROSEMIDE 40 MG TABLET PO SCH (09:11)
[2022-02-05] MEDS: ISOSORBIDE DINITRATE 20 MG TABLET PO SCH ×3 (09:11→21:15)
[2022-02-05] MEDS: amLODIPine 5 MG TABLET PO SCH (09:11)
[2022-02-05] MEDS: OXYBUTYNIN XL 15 MG TABLET PO SCH (09:11)
[2022-02-05] MEDS: FLUTICASONE/SALMETEROL 500-50 DISKUS 14 DOSE INH SCH ×2 (09:13→21:15)
[2022-02-05] MEDS: MEROPENEM 500 MG in SODIUM CHLORIDE 0.9% 100 ML IV SCH ×2 (12:12→22:30)
[2022-02-05] MEDS: ENOXAPARIN 30 MG/0.3 ML SYRINGE SUBCUT SCH (16:00)
[2022-02-05] MEDS: BIMATOPROST 0.01% OPH SOLN 2.5 ML BOTTLE BOTH EYES SCH (21:16)
[2022-02-06] MEDS: LEVALBUTEROL 1.25 MG/3 ML NEB RESP TX SCH ×4 (01:31→19:23)
[2022-02-06 05:37] LABS: Basophils % 0.2 % (0.0-0.8); Eosinophils # 0.1 10*3/uL (0.0-0.87); Eosinophils % 1.1 % (0.00-10.9); Hematocrit 32.8 VOL% (42.0-52.0); Hemoglobin 10.2 GM/DL (14.0-18.0); Immature Granulocytes % 3.2 %; Immature Granulocytes Absolute 0.36 #; Lymphocytes # 0.8 10*3/uL (1.4-4.0); Lymphocytes % 6.8 % (21.2-54.2); Mean Corpuscular HGB Conc 31.1 GM/DL (32-36); Mean Corpuscular Volume 88.6 FL (87-102); Monocytes # 0.7 10*3/uL (0.11-0.8); Monocytes % 6.5 % (1.7-12.7); Neutrophils % 82.2 % (38.7-73.9); Platelet Count 197 T/CUMM (130-400); Red Cell Distribution Width 22.6 % (9.3-17.3); White Blood Count 11.4 T/CUMM (4-12)
[2022-02-06 06:15] LABS: Calcium 7.9 MG/DL (8.5-10.1); Osmolality,Calculated 287.4 MOS/KG (273-304); Potassium 3.7 MMOL/L (3.5-5.1)
[2022-02-06] MEDS: INSULIN LISPRO 100 UNIT/ML SUBCUT SCH ×4 (07:38→21:25)
[2022-02-06] MEDS: ASPIRIN EC 81 MG TABLET PO SCH (08:31)
[2022-02-06] MEDS: FLUTICASONE/SALMETEROL 500-50 DISKUS 14 DOSE INH SCH ×2 (08:31→21:25)
[2022-02-06] MEDS: CHOLECALCIFEROL 1,000 UNIT TABLET PO SCH (08:34)
[2022-02-06] MEDS: NEBIVOLOL 10 MG TABLET PO SCH (08:34)
[2022-02-06] MEDS: FERROUS SULFATE 325 MG TABLET PO SCH (08:34)
[2022-02-06] MEDS: amLODIPine 5 MG TABLET PO SCH (08:34)
[2022-02-06] MEDS: PANTOPRAZOLE 40 MG TABLET PO SCH ×2 (08:34→21:24)
[2022-02-06] MEDS: MONTELUKAST 10 MG TABLET PO SCH (08:34)
[2022-02-06] MEDS: ISOSORBIDE DINITRATE 20 MG TABLET PO SCH ×3 (08:38→21:24)
[2022-02-06] MEDS: OXYBUTYNIN XL 15 MG TABLET PO SCH (08:38)
[2022-02-06] MEDS: SODIUM CHLORIDE 0.9% 1,000 ML IV SCH ×2 (08:39→18:13)
[2022-02-06] MEDS: SODIUM ZIRCONIUM CYCLOSILICATE 10 GM PACK PO SCH (08:39)
[2022-02-06] MEDS ORDERED: SODIUM CHLORIDE 0.45% 1,000 ML IV SCH (11:00)
[2022-02-06] MEDS ORDERED: FUROSEMIDE 40 MG/4 ML VIAL IV ONE (11:13)
[2022-02-06] MEDS: MEROPENEM 500 MG in SODIUM CHLORIDE 0.9% 100 ML IV SCH (11:29)
[2022-02-06] MEDS ORDERED: SUGAMMADEX 200 MG/2 ML VIAL IV ONE (13:36)
[2022-02-06] MEDS ORDERED: PHENYLEPHRINE DRIP 20 MG/250 ML PREMIX IV ONE (14:05)
[2022-02-06] MEDS ORDERED: LIDOCAINE 2% 5 ML VIAL ONE (14:05)
[2022-02-06] MEDS ORDERED: ROCURONIUM 50 MG/5 ML VIAL IV ONE (14:05)
[2022-02-06] MEDS ORDERED: propofoL 200 MG/20 ML VIAL IV ONE (14:05)
[2022-02-06] MEDS ORDERED: SODIUM CHLORIDE 0.9% 1,000 ML IV ONE (14:05)
[2022-02-06] MEDS ORDERED: fentaNYL 100 MCG/2 ML VIAL ONE (14:05)
[2022-02-06] MEDS ORDERED: ONDANSETRON 4 MG/2 ML VIAL ONE (14:05)
[2022-02-06] MEDS ORDERED: PHENYLEPHRINE 1 MG/10 ML SYRINGE IV ONE (14:05)
[2022-02-06] MEDS ORDERED: SEVOFLURANE 1 UNIT/15 MINUTE INH ONE (14:06)
[2022-02-06] MEDS ORDERED: ePHEDrine 50 MG/ML VIAL ONE (14:06)
[2022-02-06 15:11] LABS: % Iron Saturation 11.1 % (18-50)
[2022-02-06 15:27] LABS: Folate 3.89 NG/ML (5.38-24.0)
[2022-02-06] MEDS: ENOXAPARIN 30 MG/0.3 ML SYRINGE SUBCUT SCH (16:21)
[2022-02-06] MEDS: BIMATOPROST 0.01% OPH SOLN 2.5 ML BOTTLE BOTH EYES SCH (21:25)
[2022-02-07] MEDS: LEVALBUTEROL 1.25 MG/3 ML NEB RESP TX SCH ×4 (00:13→19:03)
[2022-02-07] MEDS: MEROPENEM 500 MG in SODIUM CHLORIDE 0.9% 100 ML IV SCH ×3 (00:18→23:36)
[2022-02-07] MEDS: SODIUM CHLORIDE 0.9% 1,000 ML IV SCH ×2 (02:16→04:00)
[2022-02-07 05:43] LABS: Basophils % 0.3 % (0.0-0.8); Eosinophils # 0.1 10*3/uL (0.0-0.87); Eosinophils % 1.4 % (0.00-10.9); Hematocrit 30.5 VOL% (42.0-52.0); Hemoglobin 9.2 GM/DL (14.0-18.0); Immature Granulocytes % 2.4 %; Immature Granulocytes Absolute 0.25 #; Lymphocytes # 0.7 10*3/uL (1.4-4.0); Lymphocytes % 6.8 % (21.2-54.2); Mean Corpuscular HGB Conc 30.2 GM/DL (32-36); Mean Platelet Volume 9.5 FL (9.6-12.0); Monocytes # 0.9 10*3/uL (0.11-0.8); Monocytes % 8.6 % (1.7-12.7); Neutrophils % 80.5 % (38.7-73.9); Platelet Count 165 T/CUMM (130-400); Red Blood Count 3.39 MC/CUMM (3.8-5.5); White Blood Count 10.2 T/CUMM (4-12)
[2022-02-07 06:05] LABS: Calcium 7.8 MG/DL (8.5-10.1); Osmolality,Calculated 285.5 MOS/KG (273-304); Potassium 3.6 MMOL/L (3.5-5.1)
[2022-02-07] MEDS: INSULIN LISPRO 100 UNIT/ML SUBCUT SCH ×4 (07:45→21:39)
[2022-02-07] MEDS: CHOLECALCIFEROL 1,000 UNIT TABLET PO SCH (08:55)
[2022-02-07] MEDS: MONTELUKAST 10 MG TABLET PO SCH (08:55)
[2022-02-07] MEDS: FERROUS SULFATE 325 MG TABLET PO SCH (08:55)
[2022-02-07] MEDS: amLODIPine 5 MG TABLET PO SCH (08:55)
[2022-02-07] MEDS: NEBIVOLOL 10 MG TABLET PO SCH (08:56)
[2022-02-07] MEDS: PANTOPRAZOLE 40 MG TABLET PO SCH ×2 (08:56→21:38)
[2022-02-07] MEDS: ISOSORBIDE DINITRATE 20 MG TABLET PO SCH ×3 (08:56→21:38)
[2022-02-07] MEDS: OXYBUTYNIN XL 15 MG TABLET PO SCH (08:56)
[2022-02-07] MEDS: ASPIRIN EC 81 MG TABLET PO SCH (08:56)
[2022-02-07] MEDS: FLUTICASONE/SALMETEROL 500-50 DISKUS 14 DOSE INH SCH ×2 (09:00→21:38)
[2022-02-07] MEDS: SODIUM ZIRCONIUM CYCLOSILICATE 10 GM PACK PO SCH (09:07)
[2022-02-07] MEDS: FUROSEMIDE 40 MG/4 ML VIAL IV SCH (13:23)
[2022-02-07] MEDS: ENOXAPARIN 30 MG/0.3 ML SYRINGE SUBCUT SCH (16:51)
[2022-02-07] MEDS: FOLIC ACID 1 MG TABLET PO SCH (21:38)
[2022-02-07] MEDS: BIMATOPROST 0.01% OPH SOLN 2.5 ML BOTTLE BOTH EYES SCH (21:39)
[2022-02-08 06:00] LABS: Basophils % 0.2 % (0.0-0.8); Eosinophils # 0.2 10*3/uL (0.0-0.87); Eosinophils % 1.7 % (0.00-10.9); Hematocrit 30.7 VOL% (42.0-52.0); Hemoglobin 9.1 GM/DL (14.0-18.0); Immature Granulocytes % 3.1 %; Immature Granulocytes Absolute 0.33 #; Lymphocytes # 0.7 10*3/uL (1.4-4.0); Mean Corpuscular HGB Conc 29.6 GM/DL (32-36); Mean Corpuscular Volume 90.6 FL (87-102); Mean Platelet Volume 10.4 FL (9.6-12.0); Monocytes # 0.9 10*3/uL (0.11-0.8); Monocytes % 8.4 % (1.7-12.7); Neutrophils % 79.6 % (38.7-73.9); Platelet Count 186 T/CUMM (130-400); Red Blood Count 3.39 MC/CUMM (3.8-5.5); Red Cell Distribution Width 21.7 % (9.3-17.3); White Blood Count 10.5 T/CUMM (4-12)
[2022-02-08 06:26] LABS: Osmolality,Calculated 285.4 MOS/KG (273-304); Potassium 3.6 MMOL/L (3.5-5.1)
[2022-02-08] MEDS: LEVALBUTEROL 1.25 MG/3 ML NEB RESP TX SCH ×4 (07:05→20:22)
[2022-02-08] MEDS: INSULIN LISPRO 100 UNIT/ML SUBCUT SCH ×4 (07:25→21:35)
[2022-02-08] MEDS ORDERED: LEUPROLIDE (3 MONTH) 22.5 MG SYRINGE SUBCUT ONE ×2 (08:28→09:00)
[2022-02-08] MEDS: BICALUTAMIDE 50 MG TABLET PO SCH (09:10)
[2022-02-08] MEDS: CHOLECALCIFEROL 1,000 UNIT TABLET PO SCH (09:10)
[2022-02-08] MEDS: PANTOPRAZOLE 40 MG TABLET PO SCH ×2 (09:10→21:34)
[2022-02-08] MEDS: FOLIC ACID 1 MG TABLET PO SCH ×2 (09:10→21:34)
[2022-02-08] MEDS: OXYBUTYNIN XL 15 MG TABLET PO SCH (09:10)
[2022-02-08] MEDS: ASPIRIN EC 81 MG TABLET PO SCH (09:10)
[2022-02-08] MEDS: FERROUS SULFATE 325 MG TABLET PO SCH (09:10)
[2022-02-08] MEDS: ISOSORBIDE DINITRATE 20 MG TABLET PO SCH ×3 (09:10→21:34)
[2022-02-08] MEDS: FUROSEMIDE 40 MG/4 ML VIAL IV SCH (09:11)
[2022-02-08] MEDS: amLODIPine 5 MG TABLET PO SCH (09:11)
[2022-02-08] MEDS: MONTELUKAST 10 MG TABLET PO SCH (09:11)
[2022-02-08] MEDS: NEBIVOLOL 10 MG TABLET PO SCH (09:11)
[2022-02-08] MEDS: SODIUM ZIRCONIUM CYCLOSILICATE 10 GM PACK PO SCH (09:11)
[2022-02-08] MEDS: FLUTICASONE/SALMETEROL 500-50 DISKUS 14 DOSE INH SCH ×2 (09:12→21:35)
[2022-02-08] MEDS ORDERED: MAGNESIUM HYDROXIDE SUSP 30 ML UDCUP PO PRN (09:36)
[2022-02-08] MEDS ORDERED: MAGNESIUM HYDROXIDE SUSP 30 ML UDCUP PO ONE (09:36)
[2022-02-08] MEDS: POTASSIUM CHLORIDE 10 MEQ TABLET PO SCH (10:31)
[2022-02-08] MEDS: MEROPENEM 500 MG in SODIUM CHLORIDE 0.9% 100 ML IV SCH ×2 (10:32→23:44)
[2022-02-08] MEDS: MAGNESIUM CHLORIDE 64 MG TABLET PO SCH (12:47)
[2022-02-08] MEDS: ENOXAPARIN 30 MG/0.3 ML SYRINGE SUBCUT SCH (21:33)
[2022-02-08] MEDS: BIMATOPROST 0.01% OPH SOLN 2.5 ML BOTTLE BOTH EYES SCH (21:35)
[2022-02-09] MEDS: LEVALBUTEROL 1.25 MG/3 ML NEB RESP TX SCH ×4 (01:22→19:24)
[2022-02-09 03:32] LABS: Basophils % 0.2 % (0.0-0.8); Eosinophils # 0.2 10*3/uL (0.0-0.87); Eosinophils % 2.6 % (0.00-10.9); Hematocrit 28.7 VOL% (42.0-52.0); Hemoglobin 8.7 GM/DL (14.0-18.0); Immature Granulocytes % 2.2 %; Lymphocytes # 0.8 10*3/uL (1.4-4.0); Lymphocytes % 8.4 % (21.2-54.2); Mean Corpuscular HGB Conc 30.3 GM/DL (32-36); Mean Corpuscular Volume 89.1 FL (87-102); Mean Platelet Volume 9.5 FL (9.6-12.0); Monocytes # 0.8 10*3/uL (0.11-0.8); Monocytes % 8.5 % (1.7-12.7); Neutrophils % 78.1 % (38.7-73.9); Platelet Count 182 T/CUMM (130-400); Red Blood Count 3.22 MC/CUMM (3.8-5.5); Red Cell Distribution Width 21.2 % (9.3-17.3); White Blood Count 9.2 T/CUMM (4-12)
[2022-02-09 03:51] LABS: Calcium 7.8 MG/DL (8.5-10.1); Osmolality,Calculated 282.4 MOS/KG (273-304); Potassium 3.5 MMOL/L (3.5-5.1)
[2022-02-09] MEDS: POTASSIUM CHLORIDE 10 MEQ TABLET PO SCH (08:39)
[2022-02-09] MEDS: ISOSORBIDE DINITRATE 20 MG TABLET PO SCH ×3 (08:39→20:50)
[2022-02-09] MEDS: MONTELUKAST 10 MG TABLET PO SCH (08:39)
[2022-02-09] MEDS: PANTOPRAZOLE 40 MG TABLET PO SCH ×2 (08:39→20:50)
[2022-02-09] MEDS: BICALUTAMIDE 50 MG TABLET PO SCH (08:42)
[2022-02-09] MEDS: ASPIRIN EC 81 MG TABLET PO SCH (08:42)
[2022-02-09] MEDS: OXYBUTYNIN XL 15 MG TABLET PO SCH (08:42)
[2022-02-09] MEDS: FOLIC ACID 1 MG TABLET PO SCH ×2 (08:42→20:49)
[2022-02-09] MEDS: MAGNESIUM CHLORIDE 64 MG TABLET PO SCH (08:42)
[2022-02-09] MEDS: FERROUS SULFATE 325 MG TABLET PO SCH (08:42)
[2022-02-09] MEDS: CHOLECALCIFEROL 1,000 UNIT TABLET PO SCH (08:42)
[2022-02-09] MEDS: FUROSEMIDE 40 MG/4 ML VIAL IV SCH (08:43)
[2022-02-09] MEDS: INSULIN LISPRO 100 UNIT/ML SUBCUT SCH ×4 (08:45→20:50)
[2022-02-09] MEDS: SODIUM ZIRCONIUM CYCLOSILICATE 10 GM PACK PO SCH (08:46)
[2022-02-09] MEDS: FLUTICASONE/SALMETEROL 500-50 DISKUS 14 DOSE INH SCH ×2 (08:46→20:51)
[2022-02-09] MEDS: NEBIVOLOL 10 MG TABLET PO SCH (09:58)
[2022-02-09] MEDS: amLODIPine 5 MG TABLET PO SCH (09:58)
[2022-02-09 11:11] LABS: Mycoplasma pneumoniae Ab, IgG Negative (Negative); Mycoplasma pneumoniae Ab, IgM Negative (Negative)
[2022-02-09] MEDS: MEROPENEM 500 MG in SODIUM CHLORIDE 0.9% 100 ML IV SCH (12:47)
[2022-02-09] MEDS: ENOXAPARIN 30 MG/0.3 ML SYRINGE SUBCUT SCH (20:50)
[2022-02-09] MEDS: BIMATOPROST 0.01% OPH SOLN 2.5 ML BOTTLE BOTH EYES SCH (20:51)
[2022-02-10] MEDS: MEROPENEM 500 MG in SODIUM CHLORIDE 0.9% 100 ML IV SCH ×3 (00:05→22:56)
[2022-02-10 04:54] LABS: Basophils % 0.5 % (0.0-0.8); Eosinophils # 0.2 10*3/uL (0.0-0.87); Eosinophils % 1.9 % (0.00-10.9); Hematocrit 26.6 VOL% (42.0-52.0); Hemoglobin 8.2 GM/DL (14.0-18.0); Immature Granulocytes % 2.2 %; Immature Granulocytes Absolute 0.19 #; Lymphocytes # 0.7 10*3/uL (1.4-4.0); Lymphocytes % 7.8 % (21.2-54.2); Mean Corpuscular HGB Conc 30.8 GM/DL (32-36); Mean Corpuscular Volume 89.3 FL (87-102); Mean Platelet Volume 9.9 FL (9.6-12.0); Monocytes # 0.7 10*3/uL (0.11-0.8); Monocytes % 8.2 % (1.7-12.7); Neutrophils % 79.4 % (38.7-73.9); Platelet Count 190 T/CUMM (130-400); Red Blood Count 2.98 MC/CUMM (3.8-5.5); Red Cell Distribution Width 20.6 % (9.3-17.3); White Blood Count 8.5 T/CUMM (4-12)
[2022-02-10 05:17] LABS: Calcium 8.1 MG/DL (8.5-10.1); Osmolality,Calculated 278.7 MOS/KG (273-304); Potassium 3.5 MMOL/L (3.5-5.1)
[2022-02-10] MEDS: INSULIN LISPRO 100 UNIT/ML SUBCUT SCH ×4 (07:08→21:43)
[2022-02-10] MEDS: LEVALBUTEROL 1.25 MG/3 ML NEB RESP TX SCH ×4 (07:15→19:54)
[2022-02-10] MEDS: BICALUTAMIDE 50 MG TABLET PO SCH (08:18)
[2022-02-10] MEDS: amLODIPine 5 MG TABLET PO SCH (08:18)
[2022-02-10] MEDS: FERROUS SULFATE 325 MG TABLET PO SCH (08:18)
[2022-02-10] MEDS: MAGNESIUM CHLORIDE 64 MG TABLET PO SCH (08:18)
[2022-02-10] MEDS: FOLIC ACID 1 MG TABLET PO SCH ×2 (08:18→21:43)
[2022-02-10] MEDS: CHOLECALCIFEROL 1,000 UNIT TABLET PO SCH (08:18)
[2022-02-10] MEDS: ASPIRIN EC 81 MG TABLET PO SCH (08:18)
[2022-02-10] MEDS: NEBIVOLOL 10 MG TABLET PO SCH (08:18)
[2022-02-10] MEDS: OXYBUTYNIN XL 15 MG TABLET PO SCH (08:18)
[2022-02-10] MEDS: POTASSIUM CHLORIDE 10 MEQ TABLET PO SCH (08:18)
[2022-02-10] MEDS: ISOSORBIDE DINITRATE 20 MG TABLET PO SCH ×3 (08:18→21:43)
[2022-02-10] MEDS: MONTELUKAST 10 MG TABLET PO SCH (08:19)
[2022-02-10] MEDS: FUROSEMIDE 40 MG/4 ML VIAL IV SCH (08:19)
[2022-02-10] MEDS: SODIUM ZIRCONIUM CYCLOSILICATE 10 GM PACK PO SCH (08:20)
[2022-02-10] MEDS: PANTOPRAZOLE 40 MG TABLET PO SCH ×2 (08:20→21:43)
[2022-02-10] MEDS: FLUTICASONE/SALMETEROL 500-50 DISKUS 14 DOSE INH SCH ×2 (08:20→21:42)
[2022-02-10] MEDS: BIMATOPROST 0.01% OPH SOLN 2.5 ML BOTTLE BOTH EYES SCH (21:43)
[2022-02-10] MEDS: ENOXAPARIN 30 MG/0.3 ML SYRINGE SUBCUT SCH (21:43)
[2022-02-11] MEDS: LEVALBUTEROL 1.25 MG/3 ML NEB RESP TX SCH ×4 (00:28→19:10)
[2022-02-11] MEDS: INSULIN LISPRO 100 UNIT/ML SUBCUT SCH ×4 (07:51→21:10)
[2022-02-11] MEDS: BICALUTAMIDE 50 MG TABLET PO SCH (10:34)
[2022-02-11] MEDS: CHOLECALCIFEROL 1,000 UNIT TABLET PO SCH (10:34)
[2022-02-11] MEDS: NEBIVOLOL 10 MG TABLET PO SCH (10:34)
[2022-02-11] MEDS: OXYBUTYNIN XL 15 MG TABLET PO SCH (10:35)
[2022-02-11] MEDS: ISOSORBIDE DINITRATE 20 MG TABLET PO SCH ×3 (10:35→21:09)
[2022-02-11] MEDS: PANTOPRAZOLE 40 MG TABLET PO SCH ×2 (10:35→21:09)
[2022-02-11] MEDS: POTASSIUM CHLORIDE 10 MEQ TABLET PO SCH (10:35)
[2022-02-11] MEDS: MONTELUKAST 10 MG TABLET PO SCH (10:35)
[2022-02-11] MEDS: MAGNESIUM CHLORIDE 64 MG TABLET PO SCH (10:35)
[2022-02-11] MEDS: amLODIPine 5 MG TABLET PO SCH (10:36)
[2022-02-11] MEDS: FERROUS SULFATE 325 MG TABLET PO SCH (10:36)
[2022-02-11] MEDS: FUROSEMIDE 40 MG/4 ML VIAL IV SCH (10:36)
[2022-02-11] MEDS: FOLIC ACID 1 MG TABLET PO SCH ×2 (10:36→21:09)
[2022-02-11] MEDS: ASPIRIN EC 81 MG TABLET PO SCH (10:37)
[2022-02-11] MEDS: SODIUM ZIRCONIUM CYCLOSILICATE 10 GM PACK PO SCH (10:38)
[2022-02-11] MEDS: FLUTICASONE/SALMETEROL 500-50 DISKUS 14 DOSE INH SCH ×2 (10:45→21:08)
[2022-02-11] MEDS: MEROPENEM 500 MG in SODIUM CHLORIDE 0.9% 100 ML IV SCH ×2 (13:26→23:47)
[2022-02-11] MEDS: ENOXAPARIN 30 MG/0.3 ML SYRINGE SUBCUT SCH (21:08)
[2022-02-11] MEDS: BIMATOPROST 0.01% OPH SOLN 2.5 ML BOTTLE BOTH EYES SCH (21:10)
[2022-02-12] MEDS: LEVALBUTEROL 1.25 MG/3 ML NEB RESP TX SCH ×4 (00:30→19:39)
[2022-02-12] MEDS: INSULIN LISPRO 100 UNIT/ML SUBCUT SCH ×4 (08:44→21:16)
[2022-02-12] MEDS: PANTOPRAZOLE 40 MG TABLET PO SCH ×2 (09:36→21:16)
[2022-02-12] MEDS: BICALUTAMIDE 50 MG TABLET PO SCH (09:36)
[2022-02-12] MEDS: FERROUS SULFATE 325 MG TABLET PO SCH (09:37)
[2022-02-12] MEDS: ISOSORBIDE DINITRATE 20 MG TABLET PO SCH ×3 (09:37→21:16)
[2022-02-12] MEDS: FUROSEMIDE 40 MG/4 ML VIAL IV SCH (09:37)
[2022-02-12] MEDS: FOLIC ACID 1 MG TABLET PO SCH ×2 (09:37→21:16)
[2022-02-12] MEDS: POTASSIUM CHLORIDE 10 MEQ TABLET PO SCH (09:37)
[2022-02-12] MEDS: NEBIVOLOL 10 MG TABLET PO SCH (09:37)
[2022-02-12] MEDS: CHOLECALCIFEROL 1,000 UNIT TABLET PO SCH (09:37)
[2022-02-12] MEDS: OXYBUTYNIN XL 15 MG TABLET PO SCH (09:37)
[2022-02-12] MEDS: ASPIRIN EC 81 MG TABLET PO SCH (09:37)
[2022-02-12] MEDS: MAGNESIUM CHLORIDE 64 MG TABLET PO SCH (09:37)
[2022-02-12] MEDS: MONTELUKAST 10 MG TABLET PO SCH (09:37)
[2022-02-12] MEDS: FLUTICASONE/SALMETEROL 500-50 DISKUS 14 DOSE INH SCH ×2 (09:37→21:16)
[2022-02-12] MEDS: SODIUM ZIRCONIUM CYCLOSILICATE 10 GM PACK PO SCH (10:31)
[2022-02-12] MEDS: MEROPENEM 500 MG in SODIUM CHLORIDE 0.9% 100 ML IV SCH (11:56)
[2022-02-12] MEDS: POLYETHYLENE GLYCOL POWDER 17 GM PACK PO SCH (17:19)
[2022-02-12] MEDS: BIMATOPROST 0.01% OPH SOLN 2.5 ML BOTTLE BOTH EYES SCH (21:16)
[2022-02-12] MEDS: ENOXAPARIN 30 MG/0.3 ML SYRINGE SUBCUT SCH (21:16)
[2022-02-13] MEDS: LEVALBUTEROL 1.25 MG/3 ML NEB RESP TX SCH ×4 (00:18→19:50)
[2022-02-13 05:29] LABS: Basophils % 0.4 % (0.0-0.8); Eosinophils # 0.3 10*3/uL (0.0-0.87); Eosinophils % 3.9 % (0.00-10.9); Hematocrit 26.5 VOL% (42.0-52.0); Hemoglobin 8.2 GM/DL (14.0-18.0); Immature Granulocytes Absolute 0.15 #; Lymphocytes # 0.8 10*3/uL (1.4-4.0); Lymphocytes % 10.2 % (21.2-54.2); Mean Corpuscular HGB Conc 30.9 GM/DL (32-36); Mean Corpuscular Volume 87.7 FL (87-102); Mean Platelet Volume 9.8 FL (9.6-12.0); Monocytes # 0.6 10*3/uL (0.11-0.8); Monocytes % 7.6 % (1.7-12.7); NRBC # 0.02 10*3/uL; Neutrophils % 75.9 % (38.7-73.9); Platelet Count 227 T/CUMM (130-400); Red Blood Count 3.02 MC/CUMM (3.8-5.5); Red Cell Distribution Width 20.2 % (9.3-17.3); White Blood Count 7.5 T/CUMM (4-12)
[2022-02-13 06:03] LABS: Albumin 2.1 G/DL (3.4-5.0); Bilirubin,Total 0.9 MG/DL (0.20-1.00); Calcium 8.2 MG/DL (8.5-10.1); Osmolality,Calculated 278.5 MOS/KG (273-304); Potassium 3.4 MMOL/L (3.5-5.1); Total Protein 5.2 G/DL (6.4-8.2)
[2022-02-13] MEDS: INSULIN LISPRO 100 UNIT/ML SUBCUT SCH ×4 (07:07→21:59)
[2022-02-13] MEDS: FUROSEMIDE 40 MG/4 ML VIAL IV SCH (08:44)
[2022-02-13] MEDS: MAGNESIUM CHLORIDE 64 MG TABLET PO SCH (08:45)
[2022-02-13] MEDS: NEBIVOLOL 10 MG TABLET PO SCH (08:45)
[2022-02-13] MEDS: POLYETHYLENE GLYCOL POWDER 17 GM PACK PO SCH (08:45)
[2022-02-13] MEDS: BICALUTAMIDE 50 MG TABLET PO SCH (08:46)
[2022-02-13] MEDS: ASPIRIN EC 81 MG TABLET PO SCH (08:46)
[2022-02-13] MEDS: MONTELUKAST 10 MG TABLET PO SCH (08:46)
[2022-02-13] MEDS: ISOSORBIDE DINITRATE 20 MG TABLET PO SCH ×3 (08:46→21:59)
[2022-02-13] MEDS: POTASSIUM CHLORIDE 10 MEQ TABLET PO SCH (08:46)
[2022-02-13] MEDS: FERROUS SULFATE 325 MG TABLET PO SCH (08:46)
[2022-02-13] MEDS: PANTOPRAZOLE 40 MG TABLET PO SCH ×2 (08:46→21:58)
[2022-02-13] MEDS: FLUTICASONE/SALMETEROL 500-50 DISKUS 14 DOSE INH SCH ×2 (08:46→21:59)
[2022-02-13] MEDS: CHOLECALCIFEROL 1,000 UNIT TABLET PO SCH (08:46)
[2022-02-13] MEDS: FOLIC ACID 1 MG TABLET PO SCH ×2 (08:46→21:59)
[2022-02-13] MEDS: OXYBUTYNIN XL 15 MG TABLET PO SCH (08:46)
[2022-02-13] MEDS: SODIUM ZIRCONIUM CYCLOSILICATE 10 GM PACK PO SCH (08:47)
[2022-02-13] MEDS ORDERED: LACTULOSE 20 GM/30 ML UDCUP PO PRN (11:34)
[2022-02-13] MEDS: DOCUSATE SODIUM 100 MG CAPSULE PO SCH (21:58)
[2022-02-13] MEDS: ENOXAPARIN 30 MG/0.3 ML SYRINGE SUBCUT SCH (21:59)
[2022-02-13] MEDS: BIMATOPROST 0.01% OPH SOLN 2.5 ML BOTTLE BOTH EYES SCH (21:59)
[2022-02-14] MEDS: LEVALBUTEROL 1.25 MG/3 ML NEB RESP TX SCH ×4 (02:08→19:04)
[2022-02-14 04:20] LABS: Basophils # 0.1 10*3/uL (0.0-0.2); Basophils % 0.6 % (0.0-0.8); Eosinophils # 0.3 10*3/uL (0.0-0.87); Eosinophils % 3.1 % (0.00-10.9); Hematocrit 25.9 VOL% (42.0-52.0); Hemoglobin 7.9 GM/DL (14.0-18.0); Immature Granulocytes % 2.3 %; Immature Granulocytes Absolute 0.19 #; Lymphocytes % 12.5 % (21.2-54.2); Mean Corpuscular HGB Conc 30.5 GM/DL (32-36); Mean Corpuscular Volume 87.2 FL (87-102); Mean Platelet Volume 9.6 FL (9.6-12.0); Monocytes # 0.5 10*3/uL (0.11-0.8); Monocytes % 6.5 % (1.7-12.7); Platelet Count 246 T/CUMM (130-400); Red Blood Count 2.97 MC/CUMM (3.8-5.5); White Blood Count 8.1 T/CUMM (4-12)
[2022-02-14 04:47] LABS: Osmolality,Calculated 276.8 MOS/KG (273-304); Potassium 3.7 MMOL/L (3.5-5.1)
[2022-02-14] MEDS: INSULIN LISPRO 100 UNIT/ML SUBCUT SCH ×4 (07:12→22:02)
[2022-02-14] MEDS: ASPIRIN EC 81 MG TABLET PO SCH (09:10)
[2022-02-14] MEDS: MAGNESIUM CHLORIDE 64 MG TABLET PO SCH (09:10)
[2022-02-14] MEDS: POLYETHYLENE GLYCOL POWDER 17 GM PACK PO SCH (09:10)
[2022-02-14] MEDS: OXYBUTYNIN XL 15 MG TABLET PO SCH (09:11)
[2022-02-14] MEDS: NEBIVOLOL 10 MG TABLET PO SCH (09:11)
[2022-02-14] MEDS: POTASSIUM CHLORIDE 10 MEQ TABLET PO SCH (09:12)
[2022-02-14] MEDS: FUROSEMIDE 40 MG TABLET PO SCH (09:12)
[2022-02-14] MEDS: FOLIC ACID 1 MG TABLET PO SCH ×2 (09:12→22:01)
[2022-02-14] MEDS: BICALUTAMIDE 50 MG TABLET PO SCH (09:12)
[2022-02-14] MEDS: FERROUS SULFATE 325 MG TABLET PO SCH (09:12)
[2022-02-14] MEDS: DOCUSATE SODIUM 100 MG CAPSULE PO SCH ×2 (09:12→22:01)
[2022-02-14] MEDS: ISOSORBIDE DINITRATE 20 MG TABLET PO SCH ×3 (09:13→22:02)
[2022-02-14] MEDS: PANTOPRAZOLE 40 MG TABLET PO SCH ×2 (09:13→22:01)
[2022-02-14] MEDS: CHOLECALCIFEROL 1,000 UNIT TABLET PO SCH (09:13)
[2022-02-14] MEDS: FLUTICASONE/SALMETEROL 500-50 DISKUS 14 DOSE INH SCH ×2 (09:13→22:02)
[2022-02-14] MEDS: MONTELUKAST 10 MG TABLET PO SCH (09:13)
[2022-02-14] MEDS: BIMATOPROST 0.01% OPH SOLN 2.5 ML BOTTLE BOTH EYES SCH (22:02)
[2022-02-14] MEDS: ENOXAPARIN 30 MG/0.3 ML SYRINGE SUBCUT SCH (22:02)
[2022-02-15] MEDS: LEVALBUTEROL 1.25 MG/3 ML NEB RESP TX SCH ×3 (01:00→12:53)
[2022-02-15 04:41] LABS: Basophils # 0.1 10*3/uL (0.0-0.2); Basophils % 0.6 % (0.0-0.8); Eosinophils # 0.3 10*3/uL (0.0-0.87); Eosinophils % 3.1 % (0.00-10.9); Hematocrit 25.9 VOL% (42.0-52.0); Hemoglobin 7.8 GM/DL (14.0-18.0); Immature Granulocytes % 3.1 %; Immature Granulocytes Absolute 0.26 #; Lymphocytes # 0.9 10*3/uL (1.4-4.0); Lymphocytes % 10.7 % (21.2-54.2); Mean Corpuscular HGB Conc 30.1 GM/DL (32-36); Mean Corpuscular Volume 89.6 FL (87-102); Mean Platelet Volume 9.7 FL (9.6-12.0); Monocytes # 0.5 10*3/uL (0.11-0.8); Monocytes % 5.7 % (1.7-12.7); Neutrophils % 76.8 % (38.7-73.9); Platelet Count 258 T/CUMM (130-400); Red Blood Count 2.89 MC/CUMM (3.8-5.5); White Blood Count 8.4 T/CUMM (4-12)
[2022-02-15 05:18] LABS: Calcium 7.9 MG/DL (8.5-10.1); Osmolality,Calculated 277.7 MOS/KG (273-304); Potassium 4.2 MMOL/L (3.5-5.1)
[2022-02-15] MEDS: INSULIN LISPRO 100 UNIT/ML SUBCUT SCH ×3 (07:21→16:48)
[2022-02-15] MEDS: BICALUTAMIDE 50 MG TABLET PO SCH (08:07)
[2022-02-15] MEDS: MAGNESIUM CHLORIDE 64 MG TABLET PO SCH (08:07)
[2022-02-15] MEDS: OXYBUTYNIN XL 15 MG TABLET PO SCH (08:07)
[2022-02-15] MEDS: NEBIVOLOL 10 MG TABLET PO SCH (08:08)
[2022-02-15] MEDS: ASPIRIN EC 81 MG TABLET PO SCH (08:08)
[2022-02-15] MEDS: FERROUS SULFATE 325 MG TABLET PO SCH (08:08)
[2022-02-15] MEDS: POTASSIUM CHLORIDE 10 MEQ TABLET PO SCH (08:08)
[2022-02-15] MEDS: MONTELUKAST 10 MG TABLET PO SCH (08:09)
[2022-02-15] MEDS: DOCUSATE SODIUM 100 MG CAPSULE PO SCH (08:09)
[2022-02-15] MEDS: CHOLECALCIFEROL 1,000 UNIT TABLET PO SCH (08:09)
[2022-02-15] MEDS: ISOSORBIDE DINITRATE 20 MG TABLET PO SCH ×2 (08:09→15:06)
[2022-02-15] MEDS: FUROSEMIDE 40 MG TABLET PO SCH (08:10)
[2022-02-15] MEDS: FOLIC ACID 1 MG TABLET PO SCH (08:10)
[2022-02-15] MEDS: PANTOPRAZOLE 40 MG TABLET PO SCH (08:10)
[2022-02-15] MEDS: FLUTICASONE/SALMETEROL 500-50 DISKUS 14 DOSE INH SCH (08:10)
[2022-02-15] MEDS: POLYETHYLENE GLYCOL POWDER 17 GM PACK PO SCH (08:11)
[2022-02-15 16:41] VITALS: BP 103/70
== END 2022-02-15 17:03 | disposition swing bed (61) | DRG 668 ==
LOC: N.EDINP 14:20 → N.ED 14:20 → SUATTDRO 15:51 → N.TELEN 21:21 → SUATTDRO 01-26 08:30 → N.TELES 01-30 00:29
PROVIDERS: ADMIT Internal Medicine; ATTEND Internal Medicine

== ENCOUNTER 2022-03-16 13:52 | Inpatient (IN) ==
[2022-03-16] MEDS ORDERED: HYDROmorphone 1 MG/1 ML SYRINGE ONE (14:14)
[2022-03-16] MEDS ORDERED: ONDANSETRON 4 MG/2 ML VIAL ONE (14:14)
[2022-03-16] MEDS ORDERED: ONDANSETRON 4 MG/2 ML VIAL IV STA (14:16)
[2022-03-16] MEDS ORDERED: HYDROmorphone 1 MG/1 ML SYRINGE IV STA (14:16)
[2022-03-16 14:53] LABS: Basophils % 0.2 % (0.0-0.8); Eosinophils % 0.3 % (0.00-10.9); Hematocrit 34.8 VOL% (42.0-52.0); Hemoglobin 10.5 GM/DL (14.0-18.0); Immature Granulocytes % 1.1 %; Immature Granulocytes Absolute 0.13 #; Lymphocytes # 0.8 10*3/uL (1.4-4.0); Lymphocytes % 6.9 % (21.2-54.2); Mean Corpuscular HGB Conc 30.2 GM/DL (32-36); Mean Corpuscular Volume 93.3 FL (87-102); Mean Platelet Volume 9.1 FL (9.6-12.0); Monocytes # 0.9 10*3/uL (0.11-0.8); Monocytes % 7.7 % (1.7-12.7); Neutrophils % 83.8 % (38.7-73.9); Platelet Count 332 T/CUMM (130-400); Red Blood Count 3.73 MC/CUMM (3.8-5.5); Red Cell Distribution Width 19.4 % (9.3-17.3); White Blood Count 11.9 T/CUMM (4-12)
[2022-03-16 15:03] LABS: PT Patient Result 11.4 SECS (10.1-12.1); Partial Thromboplastin Time 26.3 SECS (23.7-32.9)
[2022-03-16] MEDS ORDERED: ALUMINUM/MAGNES/SIMETH MAX STR 30 ML UDCUP PO PRN (15:18)
[2022-03-16 15:23] LABS: Albumin 3.1 G/DL (3.4-5.0); Bilirubin,Total 0.9 MG/DL (0.20-1.00); Calcium 6.9 MG/DL (8.5-10.1); Osmolality,Calculated 278.1 MOS/KG (273-304); Potassium 4.6 MMOL/L (3.5-5.1); Total Protein 6.9 G/DL (6.4-8.2)
[2022-03-16] MEDS ORDERED: MORPHINE 2 MG/1 ML SYRINGE IV PRN (15:23)
[2022-03-16 15:26] LABS: Anisocytosis 1+; Hypochromia 1+; Platelet Estimate Normal
[2022-03-16 15:32] LABS: Bacteria,Urine Occasional /HPF (Few); Bilirubin,Urine Negative (Negative); Blood, Urine Moderate mg/dL (Negative); Glucose,Urine (UA) Negative (Negative); Hyaline Casts,Urine 4 /LPF (0-3); Ketones,Urine Negative (Negative); Mucus,Urine Occasional /LPF (Occasional); Nitrite,Urine Negative (Negative); Protein,Urine 100 mg/dL (Negative); RBC,Urine 35-40 /HPF (0-4); Squamous Epithelial Cell,Urine Occasional /HPF (0-10); Urine Appearance Clear (Clear); Urine Color Yellow (Yellow); Urine Specific Gravity 1.015 (1.001-1.035); Urine Urobilinogen 0.2 eU/dL (<2.0); Urine pH 5.5 (4.5-8.0)
[2022-03-16] MEDS: SODIUM CHLORIDE 0.9% 1,000 ML IV SCH (17:24)
[2022-03-16] MEDS: MORPHINE 2 MG/1 ML SYRINGE IV PRN ×3 (17:29→23:46)
[2022-03-16] MEDS: ATORVASTATIN 40 MG TABLET PO SCH (20:43)
[2022-03-17] MEDS: MORPHINE 2 MG/1 ML SYRINGE IV PRN ×5 (03:45→23:35)
[2022-03-17] MEDS: SODIUM CHLORIDE 0.9% 1,000 ML IV SCH ×2 (03:46→17:34)
[2022-03-17 06:26] LABS: Basophils % 0.4 % (0.0-0.8); Eosinophils # 0.2 10*3/uL (0.0-0.87); Eosinophils % 2.1 % (0.00-10.9); Hematocrit 32.9 VOL% (42.0-52.0); Hemoglobin 9.7 GM/DL (14.0-18.0); Immature Granulocytes % 1.2 %; Immature Granulocytes Absolute 0.09 #; Lymphocytes # 1.2 10*3/uL (1.4-4.0); Lymphocytes % 15.8 % (21.2-54.2); Mean Corpuscular HGB Conc 29.5 GM/DL (32-36); Mean Corpuscular Volume 94.5 FL (87-102); Mean Platelet Volume 9.2 FL (9.6-12.0); Monocytes # 0.9 10*3/uL (0.11-0.8); Monocytes % 11.8 % (1.7-12.7); Neutrophils % 68.7 % (38.7-73.9); Platelet Count 314 T/CUMM (130-400); Red Blood Count 3.48 MC/CUMM (3.8-5.5); Red Cell Distribution Width 19.8 % (9.3-17.3); White Blood Count 7.3 T/CUMM (4-12)
[2022-03-17] MEDS ORDERED: ceFAZolin 2,000 MG/50 ML DUPLEX IV ONE (06:30)
[2022-03-17] MEDS ORDERED: VANCOMYCIN INJ 1,000 MG in SODIUM CHLORIDE 0.9% 250 ML IV ONE (06:30)
[2022-03-17 06:56] LABS: Calcium 6.7 MG/DL (8.5-10.1); Osmolality,Calculated 284.4 MOS/KG (273-304); Potassium 4.2 MMOL/L (3.5-5.1)
[2022-03-17] MEDS ORDERED: propofoL 200 MG/20 ML VIAL IV ONE (09:12)
[2022-03-17] MEDS ORDERED: ONDANSETRON 4 MG/2 ML VIAL ONE (09:12)
[2022-03-17] MEDS ORDERED: LIDOCAINE 2% 5 ML VIAL ONE (09:12)
[2022-03-17] MEDS ORDERED: DEXAMETHASONE 4 MG/1 ML VIAL ONE ×3 (09:12→10:52)
[2022-03-17] MEDS ORDERED: SEVOFLURANE 1 UNIT/15 MINUTE INH ONE ×8 (09:12→11:46)
[2022-03-17] MEDS ORDERED: fentaNYL 100 MCG/2 ML VIAL ONE (09:13)
[2022-03-17] MEDS ORDERED: ROCURONIUM 50 MG/5 ML VIAL IV ONE (09:19)
[2022-03-17] MEDS ORDERED: LIDOCAINE 1% 5 ML VIAL ONE (09:24)
[2022-03-17] MEDS ORDERED: ROPIVACAINE 0.5% 30 ML VIAL ONE (09:24)
[2022-03-17] MEDS: PANTOPRAZOLE 40 MG TABLET PO SCH (09:29)
[2022-03-17] MEDS: NEBIVOLOL 10 MG TABLET PO SCH (09:29)
[2022-03-17] MEDS ORDERED: BACITRACIN OINT 0.9 GM PACK TOP ONE (09:58)
[2022-03-17] MEDS ORDERED: ePHEDrine 50 MG/ML VIAL ONE (10:20)
[2022-03-17] MEDS ORDERED: ACETAMINOPHEN INJ 1,000 MG/100 ML VIAL IV ONE (10:53)
[2022-03-17] MEDS ORDERED: GLYCOPYRROLATE 0.4 MG/2 ML VIAL ONE (10:54)
[2022-03-17] MEDS ORDERED: NEOSTIGMINE 10 MG/10 ML VIAL ONE (10:54)
[2022-03-17] MEDS ORDERED: PHENYLEPHRINE 1 MG/10 ML SYRINGE IV ONE ×2 (11:31→11:32)
[2022-03-17] MEDS ORDERED: SODIUM CHLORIDE 0.9% 1,000 ML IV ONE (11:37)
[2022-03-17] MEDS ORDERED: MAGNESIUM HYDROXIDE SUSP 30 ML UDCUP PO PRN (11:57)
[2022-03-17] MEDS: ATORVASTATIN 40 MG TABLET PO SCH (20:57)
[2022-03-17] MEDS: DOCUSATE SODIUM 100 MG CAPSULE PO SCH (20:57)
[2022-03-17] MEDS: APIXABAN 2.5 MG TABLET PO SCH (20:57)
[2022-03-18] MEDS: SODIUM CHLORIDE 0.9% 1,000 ML IV SCH ×2 (04:58→14:10)
[2022-03-18 05:27] LABS: Basophils % 0.1 % (0.0-0.8); Eosinophils % 0.1 % (0.00-10.9); Hematocrit 27.5 VOL% (42.0-52.0); Hemoglobin 8.2 GM/DL (14.0-18.0); Immature Granulocytes % 1.1 %; Immature Granulocytes Absolute 0.09 #; Lymphocytes # 0.5 10*3/uL (1.4-4.0); Lymphocytes % 5.6 % (21.2-54.2); Mean Corpuscular HGB Conc 29.8 GM/DL (32-36); Mean Corpuscular Volume 92.6 FL (87-102); Mean Platelet Volume 9.3 FL (9.6-12.0); Monocytes # 0.6 10*3/uL (0.11-0.8); Monocytes % 7.9 % (1.7-12.7); Neutrophils % 85.2 % (38.7-73.9); Platelet Count 271 T/CUMM (130-400); Red Blood Count 2.97 MC/CUMM (3.8-5.5); Red Cell Distribution Width 19.4 % (9.3-17.3)
[2022-03-18] MEDS: MORPHINE 2 MG/1 ML SYRINGE IV PRN ×2 (05:35→12:03)
[2022-03-18 05:51] LABS: Osmolality,Calculated 281.7 MOS/KG (273-304); Potassium 4.4 MMOL/L (3.5-5.1)
[2022-03-18 05:54] LABS: Calcium 5.8 MG/DL (8.5-10.1)
[2022-03-18] MEDS ORDERED: CALCIUM GLUCONATE RIDER 2,000 MG/100 ML PREMIX IV ONE (05:58)
[2022-03-18] MEDS: PANTOPRAZOLE 40 MG TABLET PO SCH (08:00)
[2022-03-18] MEDS: NEBIVOLOL 10 MG TABLET PO SCH (08:00)
[2022-03-18] MEDS: DOCUSATE SODIUM 100 MG CAPSULE PO SCH ×2 (08:00→20:43)
[2022-03-18] MEDS: APIXABAN 2.5 MG TABLET PO SCH ×2 (08:00→20:43)
[2022-03-18] MEDS: CALCIUM (CARBONATE)/VITAMIN D 600 MG-400 UNIT TABLET PO SCH ×2 (10:05→20:43)
[2022-03-18 11:00] LABS: % Iron Saturation 8.4 % (18-50)
[2022-03-18 11:01] LABS: Folate 18.32 NG/ML (5.38-24.0)
[2022-03-18] MEDS: SODIUM BICARB INJ 50 MEQ in SODIUM CHLORIDE 0.45% 1,000 ML IV SCH (17:50)
[2022-03-18] MEDS: ATORVASTATIN 40 MG TABLET PO SCH (20:43)
[2022-03-19 04:46] LABS: Basophils % 0.2 % (0.0-0.8); Eosinophils # 0.2 10*3/uL (0.0-0.87); Eosinophils % 2.3 % (0.00-10.9); Hematocrit 28.3 VOL% (42.0-52.0); Hemoglobin 8.4 GM/DL (14.0-18.0); Immature Granulocytes % 0.7 %; Immature Granulocytes Absolute 0.06 #; Lymphocytes # 1.1 10*3/uL (1.4-4.0); Lymphocytes % 13.3 % (21.2-54.2); Mean Corpuscular HGB Conc 29.7 GM/DL (32-36); Mean Corpuscular Volume 93.7 FL (87-102); Mean Platelet Volume 9.4 FL (9.6-12.0); Monocytes # 0.6 10*3/uL (0.11-0.8); Monocytes % 7.5 % (1.7-12.7); Platelet Count 293 T/CUMM (130-400); Red Blood Count 3.02 MC/CUMM (3.8-5.5); Red Cell Distribution Width 19.8 % (9.3-17.3); White Blood Count 8.2 T/CUMM (4-12)
[2022-03-19 05:04] LABS: Osmolality,Calculated 280.4 MOS/KG (273-304); Potassium 4.2 MMOL/L (3.5-5.1)
[2022-03-19 05:30] LABS: Calcium 5.7 MG/DL (8.5-10.1)
[2022-03-19] MEDS ORDERED: CALCIUM GLUCONATE RIDER 2,000 MG/100 ML PREMIX IV ONE (06:00)
[2022-03-19] MEDS ORDERED: MAGNESIUM SULF RIDER 2 GM/50 ML PREMIX IV ONE (06:00)
[2022-03-19] MEDS: ONDANSETRON 4 MG/2 ML VIAL IV PRN (07:36)
[2022-03-19] MEDS: DOCUSATE SODIUM 100 MG CAPSULE PO SCH ×2 (09:53→20:36)
[2022-03-19] MEDS: CALCIUM (CARBONATE)/VITAMIN D 600 MG-400 UNIT TABLET PO SCH ×2 (09:53→20:36)
[2022-03-19] MEDS: NEBIVOLOL 10 MG TABLET PO SCH (09:54)
[2022-03-19] MEDS: APIXABAN 2.5 MG TABLET PO SCH ×2 (09:54→20:36)
[2022-03-19] MEDS: PANTOPRAZOLE 40 MG TABLET PO SCH (09:56)
[2022-03-19] MEDS: MORPHINE 2 MG/1 ML SYRINGE IV PRN (10:48)
[2022-03-19] MEDS: SODIUM BICARB INJ 50 MEQ in SODIUM CHLORIDE 0.45% 1,000 ML IV SCH (16:48)
[2022-03-19] MEDS: ATORVASTATIN 40 MG TABLET PO SCH (20:36)
[2022-03-20 06:44] LABS: Basophils % 0.3 % (0.0-0.8); Eosinophils # 0.2 10*3/uL (0.0-0.87); Eosinophils % 2.5 % (0.00-10.9); Hematocrit 26.7 VOL% (42.0-52.0); Hemoglobin 8.1 GM/DL (14.0-18.0); Immature Granulocytes Absolute 0.07 #; Lymphocytes # 1.2 10*3/uL (1.4-4.0); Lymphocytes % 17.3 % (21.2-54.2); Mean Corpuscular HGB Conc 30.3 GM/DL (32-36); Mean Corpuscular Volume 92.7 FL (87-102); Mean Platelet Volume 9.2 FL (9.6-12.0); Monocytes # 0.6 10*3/uL (0.11-0.8); Monocytes % 8.6 % (1.7-12.7); Neutrophils % 70.3 % (38.7-73.9); Platelet Count 269 T/CUMM (130-400); Red Blood Count 2.88 MC/CUMM (3.8-5.5); Red Cell Distribution Width 19.8 % (9.3-17.3); White Blood Count 7.1 T/CUMM (4-12)
[2022-03-20 06:59] LABS: Calcium 6.1 MG/DL (8.5-10.1); Osmolality,Calculated 279.4 MOS/KG (273-304); Potassium 4.7 MMOL/L (3.5-5.1)
[2022-03-20] MEDS: ONDANSETRON 4 MG/2 ML VIAL IV PRN (08:56)
[2022-03-20] MEDS: APIXABAN 2.5 MG TABLET PO SCH ×2 (10:21→20:49)
[2022-03-20] MEDS: DOCUSATE SODIUM 100 MG CAPSULE PO SCH ×2 (10:21→20:50)
[2022-03-20] MEDS: NEBIVOLOL 10 MG TABLET PO SCH (10:21)
[2022-03-20] MEDS: CALCIUM (CARBONATE)/VITAMIN D 600 MG-400 UNIT TABLET PO SCH ×2 (10:21→20:49)
[2022-03-20] MEDS: PANTOPRAZOLE 40 MG TABLET PO SCH (10:22)
[2022-03-20] MEDS: SODIUM BICARB INJ 50 MEQ in SODIUM CHLORIDE 0.45% 1,000 ML IV SCH (12:46)
[2022-03-20] MEDS: MORPHINE 2 MG/1 ML SYRINGE IV PRN ×2 (12:47→20:50)
[2022-03-20] MEDS: ATORVASTATIN 40 MG TABLET PO SCH (20:49)
[2022-03-21 08:18] LABS: Basophils % 0.1 % (0.0-0.8); Eosinophils # 0.2 10*3/uL (0.0-0.87); Eosinophils % 2.4 % (0.00-10.9); Hemoglobin 7.9 GM/DL (14.0-18.0); Immature Granulocytes % 1.5 %; Immature Granulocytes Absolute 0.11 #; Lymphocytes % 13.7 % (21.2-54.2); Mean Corpuscular HGB Conc 30.4 GM/DL (32-36); Mean Corpuscular Volume 91.5 FL (87-102); Mean Platelet Volume 9.4 FL (9.6-12.0); Monocytes # 0.5 10*3/uL (0.11-0.8); Monocytes % 6.1 % (1.7-12.7); Neutrophils % 76.2 % (38.7-73.9); Platelet Count 261 T/CUMM (130-400); Red Blood Count 2.84 MC/CUMM (3.8-5.5); Red Cell Distribution Width 19.8 % (9.3-17.3); White Blood Count 7.5 T/CUMM (4-12)
[2022-03-21 08:38] LABS: Osmolality,Calculated 278.4 MOS/KG (273-304); Potassium 4.5 MMOL/L (3.5-5.1)
[2022-03-21 09:00] LABS: Calcium 5.6 MG/DL (8.5-10.1)
[2022-03-21] MEDS: NEBIVOLOL 10 MG TABLET PO SCH (09:25)
[2022-03-21] MEDS: CALCIUM (CARBONATE)/VITAMIN D 600 MG-400 UNIT TABLET PO SCH ×2 (09:25→20:57)
[2022-03-21] MEDS: DOCUSATE SODIUM 100 MG CAPSULE PO SCH ×2 (09:25→20:57)
[2022-03-21] MEDS: PANTOPRAZOLE 40 MG TABLET PO SCH (09:26)
[2022-03-21] MEDS: APIXABAN 2.5 MG TABLET PO SCH ×2 (09:27→20:57)
[2022-03-21] MEDS: MORPHINE 2 MG/1 ML SYRINGE IV PRN ×3 (10:51→17:54)
[2022-03-21] MEDS ORDERED: CALCIUM GLUCONATE RIDER 2,000 MG/100 ML PREMIX IV ONE (11:00)
[2022-03-21] MEDS: ATORVASTATIN 40 MG TABLET PO SCH (20:57)
[2022-03-22 05:40] LABS: Basophils % 0.1 % (0.0-0.8); Eosinophils # 0.2 10*3/uL (0.0-0.87); Eosinophils % 2.8 % (0.00-10.9); Hematocrit 25.8 VOL% (42.0-52.0); Hemoglobin 7.9 GM/DL (14.0-18.0); Immature Granulocytes % 2.3 %; Immature Granulocytes Absolute 0.16 #; Lymphocytes % 14.5 % (21.2-54.2); Mean Corpuscular HGB Conc 30.6 GM/DL (32-36); Mean Corpuscular Volume 92.8 FL (87-102); Mean Platelet Volume 9.6 FL (9.6-12.0); Monocytes # 0.6 10*3/uL (0.11-0.8); NRBC # 0.02 10*3/uL; Neutrophils % 71.3 % (38.7-73.9); Platelet Count 257 T/CUMM (130-400); Red Blood Count 2.78 MC/CUMM (3.8-5.5); Red Cell Distribution Width 19.5 % (9.3-17.3); White Blood Count 7.1 T/CUMM (4-12)
[2022-03-22 06:01] LABS: Calcium 5.9 MG/DL (8.5-10.1); Potassium 4.4 MMOL/L (3.5-5.1)
[2022-03-22] MEDS: CALCIUM (CARBONATE)/VITAMIN D 600 MG-400 UNIT TABLET PO SCH ×2 (09:00→21:12)
[2022-03-22] MEDS: NEBIVOLOL 10 MG TABLET PO SCH (09:00)
[2022-03-22] MEDS: APIXABAN 2.5 MG TABLET PO SCH ×2 (09:01→21:12)
[2022-03-22] MEDS: DOCUSATE SODIUM 100 MG CAPSULE PO SCH ×2 (09:01→21:12)
[2022-03-22] MEDS: PANTOPRAZOLE 40 MG TABLET PO SCH (09:01)
[2022-03-22] MEDS ORDERED: TUBERCULIN SKIN TEST 0.1 ML SYRINGE INTRADERM ONE (11:01)
[2022-03-22] MEDS: ATORVASTATIN 40 MG TABLET PO SCH (21:12)
[2022-03-23] MEDS: NEBIVOLOL 10 MG TABLET PO SCH (09:05)
[2022-03-23] MEDS: APIXABAN 2.5 MG TABLET PO SCH ×2 (09:06→20:59)
[2022-03-23] MEDS: DOCUSATE SODIUM 100 MG CAPSULE PO SCH ×2 (09:06→20:59)
[2022-03-23] MEDS: CALCIUM (CARBONATE)/VITAMIN D 600 MG-400 UNIT TABLET PO SCH ×2 (09:06→21:00)
[2022-03-23] MEDS: PANTOPRAZOLE 40 MG TABLET PO SCH (09:08)
[2022-03-23] MEDS ORDERED: SODIUM PHOSPHATE INJ 30 MMOL in SODIUM CHLORIDE 0.9% 250 ML IV ONE (09:30)
[2022-03-23] MEDS ORDERED: ZALEPLON 5 MG CAPSULE PO PRN (18:32)
[2022-03-23] MEDS: ATORVASTATIN 40 MG TABLET PO SCH (21:00)
[2022-03-23] MEDS: FERROUS SULFATE 325 MG TABLET PO SCH (21:00)
[2022-03-23] MEDS: MENTHOL/ZINC OXIDE OINT 71 GM JAR TOP SCH (21:01)
[2022-03-24] MEDS: MENTHOL/ZINC OXIDE OINT 71 GM JAR TOP SCH (08:16)
[2022-03-24] MEDS: DOCUSATE SODIUM 100 MG CAPSULE PO SCH (08:17)
[2022-03-24] MEDS: CALCIUM (CARBONATE)/VITAMIN D 600 MG-400 UNIT TABLET PO SCH (08:17)
[2022-03-24] MEDS: PANTOPRAZOLE 40 MG TABLET PO SCH (08:17)
[2022-03-24] MEDS: NEBIVOLOL 10 MG TABLET PO SCH (08:17)
[2022-03-24] MEDS: FERROUS SULFATE 325 MG TABLET PO SCH (08:17)
[2022-03-24] MEDS: APIXABAN 2.5 MG TABLET PO SCH (08:17)
[2022-03-24 09:02] LABS: Osmolality,Calculated 281.1 MOS/KG (273-304); Potassium 3.8 MMOL/L (3.5-5.1)
[2022-03-24 09:05] LABS: Calcium 5.7 MG/DL (8.5-10.1)
[2022-03-24 11:39] VITALS: BP 121/76
== END 2022-03-24 12:15 | disposition swing bed (61) | DRG 522 ==
LOC: N.ED 13:52 → SUATTDRO 15:17 → N.EDINP 15:17 → N.3E 15:58
PROVIDERS: ADMIT Internal Medicine; ATTEND Hospitalist